=== PATIENT | female | born 1960 | race Caucasian/White ===

== ENCOUNTER → 2017-11-26 | Outpatient (CLI) | payer MEDICARE ==
[2017-11-26 15:26] LABS: C Reactive Protein <5.0 mg/L (<10.0); Creatine Kinase 102 U/L (30-135)
[2017-11-26 18:47] LABS: Vitamin D 25 Hydroxy 55.3 ng/mL (30.0-100.0)
== END ==
LOC: LABWHC1 14:02
PROVIDERS: ATTEND Psychiatry & Neurology Neurology
DX: G50.0 Trigeminal neuralgia (principal); G35 Multiple sclerosis
CPT/HCPCS: 36415; 82306; 82550; 82607; 85652; 86140

== ENCOUNTER → 2017-12-28 | Day surgery (SDC) | payer MEDICARE ==
[2017-12-23 09:23] VITALS: BMI 21.2
[~2017-12-28] MED LIST: SODIUM CHLORIDE 0.9% 500 ML 500 ML IV ONE
[2017-12-28 08:09] VITALS: RESP 20; TEMP 98.1
--- NOTE | 2017-12-28 09:02 | P.PCN ---
Date of Procedure: 12/28/17 Procedure(s) Performed: Procedure: Lumbar Puncture . Preoperative Diagnoses: Multiple sclerosis Postoperative Diagnosis: Multiple sclerosis Anesthesia: Local only Condition: stable. Complications: none. Patient presents today for lumbar puncture. She reports that her neurologist is ordered a lumbar puncture secondary to her multiple sclerosis. She has recently moved from [place] and her neurologist with like baseline values for the patient. Description of the procedure: Patient was placed in the prone position surgical table. Chlorhexidine 3 was used to the skin. X-ray was used to identify the L4-L5 interspace. A 25-gauge needle with 1% lidocaine was used to infiltrate the subcutaneous tissue and skin. A 21-GAUGE spinal needle was placed until confirmation of CSF came back. Patient has a very low opening pressure and cerebrospinal fluid was dripping out very slowly. Fluid was clear. Fluid was collected in 4 vials labeled #1 #4 , 4 collected last. After adequate him on spinal fluid was obtained hemostasis was achieved and a Band-Aid was placed.
--- NOTE | 2017-12-28 09:05 | FL ---
EXAMINATION TYPE: FL guided pain mgmt statistic DATE OF EXAM: 12/28/2017 HISTORY: DIAGNOSTIC LUMBAR PUNCTURE 4 SEC FLUORO, 1 IMAGE SCANNED
[2017-12-28 09:50] VITALS: BP 129/70; PULSE 61
[2017-12-28 11:29] LABS: T4, Free (Free Thyroxine) 1.25 ng/dL (0.78-2.19)
[2017-12-28 11:59] LABS: Glucose,CSF 51 mg/dL (40-70); Total Protein,CSF 44 mg/dL (12-60)
[2017-12-28 12:20] LABS: Appearance,CSF Clear; CSF Tube Number 4; CSF Tube Volume 2.5; Nucleated Cells, CSF 0 u/L (0-5); Red Blood Cell,CSF 13 u/L (0-10)
[2017-12-28 12:21] LABS: Red Blood Cell, CSF Crenated 100 %; Red Blood Cell, CSF Fresh 0 %
[2017-12-28 16:32] LABS: Rheumatoid Factor 7 IU/mL (0-15)
[2017-12-28 21:16] LABS: DNA Double-Stranded NEGATIVE (NEGATIVE); RNP <0.2 AI
[2017-12-29 09:03] LABS: Lyme IgG/IgM 0.4 Index
[2017-12-29 10:57] LABS: ANA Pattern Homogeneous; ANA Pattern 2 Nucleolar
[2017-12-29 11:55] LABS: VDRL, Qualitative CSF Nonreactive (Nonreactive)
[2017-12-29 12:14] LABS: APTT 41 Sec(s) (<43); DRVVT 1:1 Mix 43 Sec(s) (<44); Dilute Russell Viper Venom 45 Sec(s) (<44)
[2017-12-29 12:47] LABS: IgG - CSF 1.6 mg/dL (0.0 - 3.4); IgG/Albumin Index (CSF) 0.53 (0.00 - 0.77)
== END | disposition home or self-care (01) ==
LOC: ORPAIN 07:45
PROVIDERS: ATTEND Hospitalist
DX: G35 Multiple sclerosis (principal); Z88.2 Allergy status to sulfonamides; Z88.0 Allergy status to penicillin; Z88.8 Allergy status to other drugs, medicaments and biological substances
CPT/HCPCS: 62270; 82040; 82042; 82784; 82945; 83873; 83916; 84157; 84439; 84443; 84450; 84460; 85613; 85730; 86038; 86039; 86225; 86235; 86431; 86592; 86618; 86780; 87476; 88108; 89050

== ENCOUNTER → 2019-07-15 | Outpatient (CLI) | payer MEDICARE ==
[2019-07-15 13:00] VITALS: BP 132/78; PULSE 61; RESP 18; TEMP 97.9
--- NOTE | 2019-07-15 13:43 | P.GSHP ---
History of Present Illness H&P Date: 07/15/19 Chief Complaint: abnormal left breast mammogram Jossy is a 59-year-old white female who had a routine screening mammogram performed on 320 320. In the left breast in the upper outer quadrant there is some calcifications of concern and [place] [address]. This revealed 5 microcalcifications along the upper outer quadrant of the left breast located about 2 o'clock position 3 cm from the nipple. The patient does not feel any lumps masses or nodules in her breast. She does not feel any pain in her breast. She has not had any trauma or infection in the breast. No biopsies prior in that breast. She drinks Chi in the morning she does not smoke and is not exposed to second hand smoke she does not eat much chcolate Family History: father: colorectal cancer Hormonal History: menarche: 14 , 1 miscarrage, breast fed: yes, first born at 32 menopause: 52 BCP: 7 years hormones: none Surgical History: 1. right shoulder repair 2. tubaligation 3. brain surgery/seperate trigeminal nerve from artery (microvascular decompression) 4. Bilateral nerve stimulator was placed in the infraclavicular area for trigeminal neuralgia pain Medical History: 1. trigeminal neralgia 2. multiple sclerosis Social History: smoke: none alcohol: rare drugs: none - Constitutional Constitutional: Denies chills, Denies fever - EENT Comment: wears glasses, eyes water Ears: bilateral: decreased hearing, tinnitus Ears, nose, mouth and throat: Denies headache, Denies sore throat - Breasts Breasts: bilateral: as per HPI - Cardiovascular Cardiovascular: Denies chest pain, Denies shortness of breath - Respiratory Respiratory: Denies cough, Denies 7 - Gastrointestinal Gastrointestinal: Denies abdominal pain, Denies diarrhea, Denies nausea, Denies vomiting - Genitourinary (Female) Genitourinary: Denies dysuria, Denies hematuria - Menstruation Menstruation: Reports postmenopausal - Musculoskeletal Comment: multiple sclerosis, hands and knees arthritis - Integumentary Integumentary: Denies pruritus, Denies rash - Neurological Comment: multiple sclerosis, weak hands - Psychiatric Psychiatric: Reports depression, Denies anxiety - Endocrine Endocrine: Denies fatigue, Denies weight change - Hematologic/Lymphatic Comment: none - Allergic/Immunologic Allergic/Immunologic: Reports as per HPI Past Medical History Past Medical History: Neurologic Disorder Additional Past Medical History / Comment(s): MS; Trigeminal Neuropathy History of Any Multi-Drug Resistant Organisms: None Reported Past Surgical History: Orthopedic Surgery, Tubal Ligation Additional Past Surgical History / Comment(s): Brain surgery/ microvascular decompression; torn shoulder labrum repair Past Anesthesia/Blood Transfusion Reactions: No Reported Reaction Past Psychological History: Depression Smoking Status: Never smoker Past Alcohol Use History: Occasional Past Drug Use History: None Reported - Past Family History Father Family Medical History: Cancer Additional Family Medical History / Comment(s): colorectal CA Medications and Allergies Home Medications Medication Instructions Recorded Confirmed Type Gabapentin [Neurontin] 900 mg PO TID 12/23/17 07/15/19 History OXcarbazepine 600 mg PO HS 12/23/17 07/15/19 History OXcarbazepine [Trileptal] 300 mg PO QAM 12/23/17 07/15/19 History Pregabalin [Lyrica] 300 mg PO BID 12/23/17 07/15/19 History Allergies Allergy/AdvReac Type Severity Reaction Status Date / Time carbamazepine [From Tegretol] AdvReac Rash/Hives Verified 07/15/19 12:54 Penicillins AdvReac Rash/Hives Verified 07/15/19 12:54 Sulfa (Sulfonamide AdvReac Rash/Hives Verified 07/15/19 12:54 Antibiotics) Surgical - Exam Vital Signs Temp Pulse Resp BP Pulse Ox 97.9 F 61 18 132/78 99 07/15/19 12:56 07/15/19 12:56 07/15/19 12:56 07/15/19 12:56 07/15/19 12:56 BMI 21.3 - General well developed, well nourished, no distress - Eyes normal ocular movement - ENT no hearing loss, no congestion - Neck no masses, trachea midline - Respiratory normal respiratory effort, clear to auscultation - Cardiovascular Rhythm: regular Heart Sounds: normal: S1, S2 - Abdomen Abdomen: soft, non tender, no guarding, no rigid, no rebound - Integumentary normal turgor, slight droop left corner of the mouth - Neurologic no disoriented, no combative - Musculoskeletal normal gait, normal posture - Psychiatric oriented to time, oriented to person, oriented to place, speech is normal, memory intact breast exam: BRA 34B inspection: no nipple inversion, ptosis grade 2, bilateral infraclavicular nerve stimulators for the trigeminal neuralgia Palpation: Right breast: Multiple position on exam no dominant masses or nodules of concern, fibrocystic changes Right axilla: No adenopathy of concern Left breast: Multi-positional exam fibrocystic changes no dominant masses or nodules of concern Left axilla: No adenopathy of concern Results mammogram reviewed with radiology, will repeat mammogram at this time as the areas of concern is not well seen Assessment and Plan Assessment: Impression: 1. Mammographic abnormality left breast, reviewed with radiology not well seen 2. Fibrocystic breast changes 3. Bilateral infraclavicular nerve stimulator for trigeminal neuralgia pain 4. Multiple sclerosis Plan: 1. repeat left breast mammogram with magnification views 2. if lesion of concern is identified would proceed with stereotactic core biopsy if it is not well seen Left breast mammogram in 6 months 3. If patient notes anything of concern sooner she will let us know CC: Dr. Jerman Ford Risk and benefits of the procedure discussed with the patient. Risks include but are not limited to bleeding, infection, possible reaction to the anesthetic. Additionally the lesion may not be able to be identified and it may be necessary to do a needle local excisional biopsy. At this time we are going to repeat the area with magnification views and determine if biopsy is necessary. encounter 40 minutes, > 50% of time in planning and counselling Time with Patient: Greater than 30
--- NOTE | 2019-07-19 07:51 | MM ---
Reason for exam: clinical finding. Physical Findings: Breast exam performed by Dr. Marshall. MG Diagnostic Mammo LT w CAD CC, MLO, ML, CC with magnification, and MLO with magnification view(s) were taken of the left breast. The breast tissue is heterogeneously dense. This may lower the sensitivity of mammography. On left magnification views of the upper outer quadrant there are few rounded left calcifications scattered at anterior and middle depth with no true lateral group. 6 month follow up left mammogram recommended with magnification views for direct comparison. Left cardiac device noted. These results were verbally communicated with the patient and result sheet given to the patient on 07/15/19. ASSESSMENT: Probably benign, BI-RAD 3 RECOMMENDATION: Follow-up diagnostic mammogram of the left breast in 6 months. (magnification views)
== END | disposition home or self-care (01) ==
LOC: WWCWWP 12:44
PROVIDERS: ATTEND Surgery
DX: R92.8 Other abnormal and inconclusive findings on diagnostic imaging of breast (principal)
CPT/HCPCS: 77065

== ENCOUNTER → 2020-02-15 | Outpatient (CLI) | payer MEDICARE ==
--- NOTE | 2020-02-20 07:56 | MM ---
Reason for exam: follow-up at short interval from prior study. Last mammogram was performed 7 months ago. Physical Findings: Nurse did not find any significant physical abnormalities on exam. MG 3D Diag Mammo W/Cad LT CC and MLO view(s) were taken of the left breast. Prior study comparison: July 15, 2019, left breast MG diagnostic mammo LT w CAD. The breast tissue is extremely dense which could obscure a lesion on mammography. There is no discrete abnormality including area of concern. No significant new findings when compared with previous films. These results were verbally communicated with the patient and result sheet given to the patient on 02/15/20. ASSESSMENT: Benign, BI-RAD 2 RECOMMENDATION: Routine screening mammogram of both breasts in 3 months. Back on schedule for April 2020.
== END | disposition home or self-care (01) ==
LOC: RADMAMWWP 14:54
PROVIDERS: ATTEND Surgery
DX: R92.0 Mammographic microcalcification found on diagnostic imaging of breast (principal)
CPT/HCPCS: 77065; G0279; 77061

== ENCOUNTER → 2020-03-09 | Outpatient (CLI) | payer MEDICARE ==
[2020-03-09 16:29] VITALS: BP 122/80; PULSE 65; RESP 18
--- NOTE | 2020-03-09 16:59 | P.PN ---
Subjective Progress Note Date: 03/09/20 Principal diagnosis: follow up on abnormal mammogram Jossy is a 59-year-old white female who [place] [address]. In the left breast in the upper outer quadrant there is some calcifications of concern and [place] [address]. This revealed 5 microcalcifications along the upper outer quadrant of the left breast located about 2 o'clock position 3 cm from the nipple. follow up mammogram in 6 months was recommended. She had a repeat mammogram on 02-15-20 which was benign BIRAD 2, repeat bilateral mammogram in 3 months. The patient does not feel any lumps masses or nodules in her breast. She does not feel any pain in her breast. She has not had any trauma or infection in the breast. No biopsies prior in that breast. She drinks Chi in the morning she does not smoke and is not exposed to second hand smoke she does not eat much chcolate Family History: father: colorectal cancer Hormonal History: menarche: 14 , 1 misc[place]age, breast fed: yes, first born at 32 menopause: 52 BCP: 7 years hormones: none Surgical History: 1. right shoulder repair 2. tubaligation 3. brain surgery/seperate trigeminal nerve from artery (microvascular decompression) 4. Bilateral nerve stimulator was placed in the infraclavicular area for trigeminal neuralgia pain Medical History: 1. trigeminal neralgia 2. multiple sclerosis Social History: smoke: none alcohol: rare drugs: none - Constitutional Constitutional: Denies chills, Denies fever - EENT Comment: wears glasses, eyes water Ears: bilateral: decreased hearing, tinnitus Ears, nose, mouth and throat: Denies headache, Denies sore throat - Breasts Breasts: bilateral: as per HPI - Cardiovascular Cardiovascular: Denies chest pain, Denies shortness of breath - Respiratory Respiratory: Denies cough, - Gastrointestinal Gastrointestinal: Denies abdominal pain, Denies diarrhea, Denies nausea, Denies vomiting - Genitourinary (Female) Genitourinary: Denies dysuria, Denies hematuria - Menstruation Menstruation: Reports postmenopausal - Musculoskeletal Comment: multiple sclerosis, hands and knees arthritis - Integumentary Integumentary: Denies pruritus, Denies rash - Neurological Comment: multiple sclerosis, weak hands - Psychiatric Psychiatric: Reports depression, Denies anxiety - Endocrine Endocrine: Denies fatigue, Denies weight change - Hematologic/Lymphatic Comment: none - Allergic/Immunologic Allergic/Immunologic: Reports as per HPI Objective - Vital Signs Vital signs: Vital Signs Temp Pulse 65 03/09/20 16:27 Resp 18 03/09/20 16:27 BP 122/80 03/09/20 16:27 Pulse Ox 99 03/09/20 16:27 Intake & Output 03/08/20 03/09/20 03/09/20 18:59 06:59 18:59 Weight 63.503 kg - Constitutional General appearance: Present: average body habitus - EENT Eyes: Present: EOMI ENT: Present: hearing grossly normal - Neck Neck: Present: normal ROM - Respiratory Respiratory: bilateral: CTA - Cardiovascular Rhythm: regular Heart sounds: normal: S1, S2 - Gastrointestinal General gastrointestinal: Present: normal bowel sounds, soft - Integumentary Integumentary Comment(s): bilateral chest wall nerve stimulators in place for trigeminal neuralgia Integumentary: Present: normal turgor - Musculoskeletal Musculoskeletal: Present: gait normal - Psychiatric Psychiatric: Present: A&O x's 3 - Additional findings Additional findings: breast exam: BRA: 34B inspection: Grade 2 ptosis bilaterally Palpation: Right breast: Multiple positional exam fibrocystic breast changes Right axilla: No adenopathy of concern Left breast: Multi-positional exam no dominant masses or nodules of concern fibrocystic changes Left axilla: No adenopathy of concern Assessment and Plan Assessment: Impression: 1. Lateral fibrocystic breast changes 2. Recent left breast mammogram 1220 320 stable 3. Trigeminal neuralgia with nerve stimulators 4. Multiple sclerosis 5. Nothing to 1 interventional biopsy at this time Plan: 1. Recommendation for bilateral mammogram in 3 months/patient may opt to just have the right breast on a she just had a left breast mammogram 2. Follow-up after mammogram CC: Dr. Ford encounter 15 minutes, > 50% of time in planning and counselling
== END | disposition home or self-care (01) ==
LOC: WWCWWP 16:21
PROVIDERS: ATTEND Surgery
DX: Z53.9 Procedure and treatment not carried out, unspecified reason (principal)

== ENCOUNTER → 2020-05-24 | Outpatient (CLI) | payer MEDICARE ==
--- NOTE | 2020-05-28 10:02 | MM ---
Reason for exam: screening (asymptomatic). Last mammogram was performed 3 months ago. History: Patient is postmenopausal and had first child at age 32. Took hormonal contraceptives for 8 years. Physical Findings: A clinical breast exam by your physician is recommended on an annual basis and results should be correlated with mammographic findings. MG 3D Screening Mammo W/Cad Bilateral CC and MLO view(s) were taken. Prior study comparison: May 16, 2019, mammogram. The breast tissue is heterogeneously dense. This may lower the sensitivity of mammography. Generator device over the left pectoralis. No significant changes when compared with prior studies. ASSESSMENT: Negative, BI-RAD 1 RECOMMENDATION: Routine screening mammogram of both breasts in 1 year. Patient should continue monthly self breast exams. A negative report should not preclude additional follow up of suspicious palpable abnormalities.
== END | disposition home or self-care (01) ==
LOC: RADMAMWWP 14:52
PROVIDERS: ATTEND Surgery
DX: Z12.31 Encounter for screening mammogram for malignant neoplasm of breast (principal); Z78.0 Asymptomatic menopausal state
CPT/HCPCS: 77063; 77067

== ENCOUNTER → 2020-06-14 | Outpatient (CLI) | payer MEDICARE ==
[2020-06-14 15:39] VITALS: BP 107/66; PULSE 66; RESP 14; TEMP 97.5
--- NOTE | 2020-06-14 15:57 | P.PN ---
Subjective Progress Note Date: 06/14/20 Principal diagnosis: breast surveillance follow up on abnormal mammogram Jsosy is a 60-year-old white female who [place] [address]. In the left breast in the upper outer quadrant there is some calcifications of concern and [place] [address]. This revealed 5 microcalcifications along the upper outer quadrant of the left breast located about 2 o'clock position 3 cm from the nipple. follow up mammogram in 6 months was recommended. She had a repeat mammogram on 02-15-20 which was benign BIRAD 2, repeat bilateral mammogram in 3 months. The patient does not feel any lumps masses or nodules in her breast. She does not feel any pain in her breast. She has not had any trauma or infection in the breast. No biopsies prior in that breast. She had a bilateral mammogram on 05-24-20 which was BIRAD 1. The patient does not feel any new lumps masses or nodules in her breasts for which she has any concern. She drinks Chi in the morning she does not smoke and is not exposed to second hand smoke she does not eat much chcolate Family History: father: colorectal cancer Hormonal History: menarche: 14 , 1 misc[place], breast fed: yes, first born at 32 menopause: 52 BCP: 7 years hormones: none Surgical History: 1. right shoulder repair 2. tubaligation 3. brain surgery/seperate trigeminal nerve from artery (microvascular decompression) 4. Bilateral nerve stimulator was placed in the infraclavicular area for trigeminal neuralgia pain Medical History: 1. trigeminal neralgia 2. multiple sclerosis Social History: smoke: none alcohol: rare drugs: none - Constitutional Constitutional: Denies chills, Denies fever - EENT Comment: wears glasses, eyes water Ears: bilateral: decreased hearing, tinnitus Ears, nose, mouth and throat: Denies headache, Denies sore throat - Breasts Breasts: bilateral: as per HPI - Cardiovascular Cardiovascular: Denies chest pain, Denies shortness of breath - Respiratory Respiratory: Denies cough, - Gastrointestinal Gastrointestinal: Denies abdominal pain, Denies diarrhea, Denies nausea, Denies vomiting - Genitourinary (Female) Genitourinary: Denies dysuria, Denies hematuria - Menstruation Menstruation: Reports postmenopausal - Musculoskeletal Comment: multiple sclerosis, hands and knees arthritis - Integumentary Integumentary: Denies pruritus, Denies rash - Neurological Comment: multiple sclerosis, weak hands - Psychiatric Psychiatric: Reports depression, Denies anxiety - Endocrine Endocrine: Denies fatigue, Denies weight change - Hematologic/Lymphatic Comment: none - Allergic/Immunologic Allergic/Immunologic: Reports as per HPI Objective - Vital Signs Vital signs: Vital Signs Temp 97.5 F L 06/14/20 15:34 Pulse 66 06/14/20 15:34 Resp 14 06/14/20 15:34 BP 107/66 06/14/20 15:34 Pulse Ox 98 06/14/20 15:34 Intake & Output 06/13/20 06/14/20 06/14/20 18:59 06:59 18:59 Weight 64.41 kg - Exam BMI 26.1 - Constitutional General appearance: Present: average body habitus - EENT Eyes: Present: EOMI ENT: Present: hearing grossly normal - Neck Neck: Present: normal ROM - Respiratory Respiratory: bilateral: CTA - Cardiovascular Rhythm: regular Heart sounds: normal: S1, S2 - Integumentary Integumentary: Present: normal turgor - Musculoskeletal Musculoskeletal: Present: gait normal - Psychiatric Psychiatric: Present: A&O x's 3, appropriate affect, intact judgment & insight - Additional findings Additional findings: Breasts examination: BRA: 30 4B Inspection: Bilateral grade 2 ptosis Palpation: Right breast: Multi-positional exam fibrocystic changes no dominant masses or nodules of concern Right axilla: No adenopathy of concern Left breast: Multi-positional exam fibrocystic changes no dominant masses or nodules of concern Left axilla: No adenopathy of concern Bilateral nerve stimulator is in the upper chest wall Assessment and Plan Assessment: Impression: 1. bilateral fibrocystic disease 2. Trigeminal neuralgia 2. Multiple sclerosis Plan: 1. follow up bilateral mammogram in 1 year with examination CC: Dr. Ford
== END | disposition home or self-care (01) ==
LOC: WWCWWP 15:20
PROVIDERS: ATTEND Surgery
DX: N60.11 Diffuse cystic mastopathy of right breast (principal); N60.12 Diffuse cystic mastopathy of left breast; G35 Multiple sclerosis; G50.0 Trigeminal neuralgia

== ENCOUNTER → 2021-06-07 | Outpatient (CLI) | payer MEDICARE ==
[2021-06-07 14:17] VITALS: BP 133/57; PULSE 70; RESP 18; TEMP 98.1
--- NOTE | 2021-06-07 14:44 | P.PN ---
Subjective Progress Note Date: 06/07/21 Principal diagnosis: fibrocystic breast changes Jossy is a 61-year-old white female who [place] [address]. In the left breast in the upper outer quadrant there is some calcifications of concern and a [place] [address]. This revealed 5 microcalcifications along the upper outer quadrant of the left breast located about 2 o'clock position 3 cm from the nipple. follow up mammogram in 6 months was recommended. She had a repeat mammogram on 02-15-20 which was benign BIRAD 2, repeat bilateral mammogram in 3 months. She had a bilateral mammogram on 05-30-21 which is benign BIRAD 2. The patient does not feel any lumps masses or nodules in her breast. She does not feel any pain in her breast. She has not had any trauma or infection in the breast. No biopsies prior in that breast. She drinks Chi in the morning she does not smoke and is not exposed to second hand smoke she does not eat much chcolate Family History: father: colorectal cancer Hormonal History: menarche: 14 , 1 [place], breast fed: yes, first born at 32 menopause: 52 BCP: 7 years hormones: none Surgical History: 1. right shoulder repair 2. tubaligation 3. brain surgery/seperate trigeminal nerve from artery (microvascular decompression) 4. Bilateral nerve stimulator was placed in the infraclavicular area for trigeminal neuralgia pain Medical History: 1. trigeminal neralgia 2. multiple sclerosis Social History: smoke: none alcohol: rare drugs: none - Constitutional Constitutional: Denies chills, Denies fever - EENT Comment: wears glasses, eyes water Ears: bilateral: decreased hearing, tinnitus Ears, nose, mouth and throat: Denies headache, Denies sore throat - Breasts Breasts: bilateral: as per HPI - Cardiovascular Cardiovascular: Denies chest pain, Denies shortness of breath - Respiratory Respiratory: Denies cough, - Gastrointestinal Gastrointestinal: Denies abdominal pain, Denies diarrhea, Denies nausea, Denies vomiting - Genitourinary (Female) Genitourinary: Denies dysuria, Denies hematuria - Menstruation Menstruation: Reports postmenopausal - Musculoskeletal Comment: multiple sclerosis, hands and knees arthritis - Integumentary Integumentary: Denies pruritus, Denies rash - Neurological Comment: multiple sclerosis, weak hands - Psychiatric Psychiatric: Reports depression, Denies anxiety - Endocrine Endocrine: Denies fatigue, Denies weight change - Hematologic/Lymphatic Comment: none - Allergic/Immunologic Allergic/Immunologic: Reports as per HPI Objective - Vital Signs Vital signs: Vital Signs Temp 98.1 F 06/07/21 14:15 Pulse 70 06/07/21 14:15 Resp 18 06/07/21 14:15 BP 133/57 06/07/21 14:15 Pulse Ox 99 06/07/21 14:15 Intake & Output 06/06/21 06/07/21 06/07/21 18:59 06:59 18:59 Weight 63.503 kg - Exam BMI 21.3 - Constitutional General appearance: Present: cooperative - EENT Eyes: Present: EOMI ENT: Present: hearing grossly normal - Neck Neck: Present: normal ROM - Respiratory Respiratory: bilateral: CTA - Cardiovascular Heart sounds: normal: S1, S2 - Integumentary Integumentary: Present: normal turgor - Musculoskeletal Musculoskeletal: Present: gait normal - Psychiatric Psychiatric: Present: A&O x's 3, appropriate affect, intact judgment & insight - Additional findings Additional findings: Breast Exam: BRA: 34B inspection: grade 2 ptosis bilateral, bilateral infraclavicular nerve stimulators to control trigeminal neuralgia pain palpation: right breast: multipositional exam no dominate masses or nodules of concern right axilla: no adenopathy of concern left breast: multipositional exam no dominate masses or nodules of concern left axilla: no adenopathy of concern Assessment and Plan Assessment: Impression: 1. trigeminal neralgia 2. multiple sclerosis 3. fibrocystic breast changes Plan: 1. bilateral mammogram in 1 year, and follow up appointment at that time CC: Dr. Ford
== END ==
LOC: WWCWWP 14:08
PROVIDERS: ATTEND Surgery
DX: N60.19 Diffuse cystic mastopathy of unspecified breast (principal); G35 Multiple sclerosis; G50.0 Trigeminal neuralgia; Z88.0 Allergy status to penicillin; Z88.2 Allergy status to sulfonamides; Z88.1 Allergy status to other antibiotic agents

== ENCOUNTER → 2021-11-05 | Outpatient (CLI) | payer MEDICARE ==
[2021-11-05 14:39] VITALS: BP 134/78; PULSE 64; RESP 18; TEMP 97.9
--- NOTE | 2021-11-05 15:34 | P.HPOB ---
History of Present Illness H&P Date: 11/05/21 Chief Complaint: The patient is here for her routine gynecologic exam. This is a 69-year-old 012 with an LMP of 2011. The patient is here to establish with this office. She is without gynecologic complaints and denies any postmenopausal bleeding. Review of Systems The patient has gained 15 pounds over the last year. She states she has been generally under weight since she was diagnosed with trigeminal neuralgia. She denies respiratory, cardiac, or G.I. problems. Past Medical History Past Medical History: Neurologic Disorder Additional Past Medical History / Comment(s): Multiple sclerosis; Trigeminal Neuropathy. 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 History of Any Multi-Drug Resistant Organisms: None Reported Past Surgical History: Orthopedic Surgery, Tubal Ligation Additional Past Surgical History / Comment(s): Brain surgery/ microvascular decompression; right torn shoulder labrum repair; Colonoscopy 2017 ([place]) Past Anesthesia/Blood Transfusion Reactions: No Reported Reaction Past Psychological History: Depression (Doing well without medications. Denies current depression.) Smoking Status: Never smoker Past Alcohol Use History: Occasional (1 or 2 per week) Past Drug Use History: None Reported Additional History: She has been since 1984. She does not work outside of the home. She has 1 grandchild. - Past Family History Father Family Medical History: Cancer, Coronary Artery Disease (CAD) Additional Family Medical History / Comment(s): colorectal CA Mother Family Medical History: Hypertension, Rheumatoid Arthritis (RA) Additional Family Medical History / Comment(s): Osteoporosis. Medications and Allergies Home Medications Medication Instructions Recorded Confirmed Type Gabapentin [Neurontin] 900 mg PO TID 12/23/17 11/05/21 History OXcarbazepine 600 mg PO HS 12/23/17 11/05/21 History OXcarbazepine [Trileptal] 300 mg PO QAM 12/23/17 11/05/21 History Pregabalin [Lyrica] 300 mg PO BID 12/23/17 11/05/21 History Cholecalciferol (Vitamin D3) 125 mcg PO QAM 06/14/20 11/05/21 History [Vitamin D3 (5000 Iu)] Cyanocobalamin (Vitamin B-12) 1,000 mcg PO QAM 06/14/20 11/05/21 History [Vitamin B-12] Multivitamins, Thera [Multivitamin 1 tab PO QAM 06/14/20 11/05/21 History (formulary)] Vitamin A [Vitamin A (8,000 Units 2,400 mcg PO QAM 06/14/20 11/05/21 History = 2,400 MCG)] Vits A,C,E/Lutein/Minerals 1 each PO QAM 06/14/20 11/05/21 History [Ocuvite with Lutein Tablet] Calcium Carbonate [Calcium] 600 mg PO DAILY 11/05/21 11/05/21 History Zinc Gluconate [Zinc] 50 mg PO DAILY 11/05/21 11/05/21 History Allergies Allergy/AdvReac Type Severity Reaction Status Date / Time carbamazepine [From Tegretol] AdvReac Rash/Hives Verified 11/05/21 14:35 Penicillins AdvReac Rash/Hives Verified 11/05/21 14:35 Sulfa (Sulfonamide AdvReac Rash/Hives Verified 11/05/21 14:35 Antibiotics) Exam Vital Signs Temp Pulse Resp BP Pulse Ox 11/05/21 14:36 97.9 F 64 18 134/78 99 Intake and Output 11/05/21 11/05/21 11/05/21 06:59 14:59 22:59 Other: Weight 65.771 kg Height 5 feet 8 inches, weight 145 pounds, BMI 22.0. This is a well-developed well-nourished white female who is alert and oriented times 3 in no acute distress. HEENT: Within normal limits. NECK: Supple without mass or thyromegaly. CHEST AND LUNGS: Clear to auscultation. HEART: Regular rate and rhythm. BREASTS: Are without mass or discharge. AXILLARY EXAM: Negative for adenopathy. BACK: Negative for CVA tenderness. ABDOMEN: Soft, nontender, without palpable masses. PELVIC EXAM: Normal external genitalia with mild atrophy. Cervix and vagina appear normal with mild atrophy. There is no unusual discharge. There is no evidence of prolapse. The uterus is midposition, nongravid size and nontender. There are no palpable adnexal masses or tenderness. RECTAL EXAM: Rectovaginal exam is negative for mass or tenderness and is negative for occult blood. EXTREMITIES: Nontender. IMPRESSION: 1. 61-year-old menopausal female with normal gynecologic exam PLAN: 1. Pap smear cotest was performed. 2. Self breast awareness was discussed with the patient. We have also discussed symptoms associated with inflammatory breast cancer. 3. Screening mammogram was done on 05/30/2021 and was benign. She will repeat this after 1 year. 4. Osteoporosis prevention was discussed. I have stressed the importance of adequate calcium, vitamin D and regular exercise. Recommended amounts of calcium and vitamin D were also discussed. I have recommended bone density testing and the order slip was given to the patient for this. 5. Colorectal cancer screening was discussed. With her father's history of colon cancer, she is probably due for a colonoscopy and she will arrange this through her PCP. 6. She has completed her Covid vaccination series, but has not gotten a booster. I recommended that she look into getting a booster. 7. She was advised to return in one year for her annual well woman exam.
== END ==
LOC: WWCWWP 14:28
PROVIDERS: ATTEND Obstetrics & Gynecology
DX: Z01.419 Encounter for gynecological examination (general) (routine) without abnormal findings (principal); Z78.0 Asymptomatic menopausal state; Z88.0 Allergy status to penicillin; Z88.2 Allergy status to sulfonamides; Z88.8 Allergy status to other drugs, medicaments and biological substances

== ENCOUNTER → 2021-11-28 | Outpatient (CLI) | payer MEDICARE ==
--- NOTE | 2021-11-29 16:32 | BD ---
EXAMINATION TYPE: Axial Bone Density DATE OF EXAM: 11/28/2021 COMPARISON: NONE CLINICAL HISTORY: 61 years year old Female. ICD-10 CODE: Z78.0 POSTMENOPAUSAL SYMPTOMS Height: 5 FT 7 IN Weight: 142 FRAX RISK QUESTIONS: Alcohol (3 or more units per day): NO Family History (Parent hip fracture): YES Glucocorticoids (More than 3mos): NO (Ex: prednisone, prednisolone, methylprednisolone, dexamethasone, and hydrocortisone). History of Fracture in Adulthood: YES Secondary Osteoporosis: 1. Type 1 Diabetes: NO 2. Hyperthyroidism: NO 3. Menopause before 45: NO 4. Malnutrition: NO 5. Chronic liver disease: NO Rheumatoid Arthritis: NO Current Tobacco Use: NO RISK FACTORS HISTORY OF: Surgery to Spine/Hip(right/left)/Wrist (right/left): NO Family History of Osteoporosis: YES Active: YES Diet low in dairy products/other sources of calcium: NO Postmenopausal woman: YES Take estrogen and/or progesterone medications: NO Lost more than 2 inches in height since high school: NO Frequent falls: YES Poor Health: GOOD Hyperparathyroidism: NO Adrenal Insufficiency: NO MEDICATIONS: Additional Medications: GABAPENTIN, OXCARBAZEPINE, LYRICA, Additional History: PT HAS MS EXAM MEASUREMENTS: Bone mineral densitometry was performed using the Graph [employer] System. Bone mineral density as measured about the Lumbar spine is: ----- L1-L4(G/cm2): 0.975 T Score Values are as follows: ----- L1: -2.5 ----- L2: -2.1 ----- L3: -1.3 ----- L4: -1.3 ----- L1-L4: -1.7 BASELINE Bone mineral density about the R hip (g/cm2): 0.810 Bone mineral density about the L hip (g/cm2): 0.816 T Score values are as follows: -----R Neck: -1.6 -----L Neck: -1.6 -----R Total: -1.9 -----L Total: -1.4 BASELINE FRAX%s: The graph provided illustrates a 13.7 % chance for a major osteoporotic fx and a 1.5 % chance for the hips probability for fx in 10 years time. IMPRESSION: Osteopenia (T Score between -2.5 and -1). There is slightly increased risk of fracture and the patient may be considered for treatment. Re-Screen 2-5 years. NOTE: T-SCORE=SD OF THE YOUNG ADULT MEAN.
== END | disposition home or self-care (01) ==
LOC: RADBDWWP 16:06
PROVIDERS: ATTEND Obstetrics & Gynecology
DX: M81.0 Age-related osteoporosis without current pathological fracture (principal); Z78.0 Asymptomatic menopausal state
CPT/HCPCS: 77080

== ENCOUNTER → 2022-06-05 | Outpatient (CLI) | payer MEDICARE ==
--- NOTE | 2022-06-06 08:17 | MM ---
Reason for Exam: Screening (asymptomatic). Last screening mammogram was performed 12 month(s) ago. Patient History: Menarche at age 14. First Full-Term at age 32. Late child-bearing (after 30). Postmenopausal. Patient has history of breast feeding. Patient used Hormonal Contraceptives for 8 years. Risk Values: Taylor 5 year model risk: 2.0%. NCI Lifetime model risk: 9.7%. Prior Study Comparison: 02/15/2020 Left Diagnostic Mammogram, [facility]. 05/24/2020 Bilateral Screening Mammogram, [facility]. 05/30/2021 Bilateral Screening Mammogram, [facility]. Tissue Density: The breast tissue is heterogeneously dense. This may lower the sensitivity of mammography. Findings: Analyzed By CAD. Benign-appearing calcifications. There is no suspicious group of microcalcifications or new suspicious mass in either breast. Overall Assessment: Benign, BI-RAD 2 Management: Screening Mammogram of both breasts in 1 year. A clinical breast exam by your physician is recommended on an annual basis and results should be correlated with mammographic findings. [facility] will attempt to contact patient to return for supplemental views and ultrasound if indicated. Electronically signed and approved by: David Booth DO
== END | disposition home or self-care (01) ==
LOC: RADMAMWWP 15:10
PROVIDERS: ATTEND Surgery
DX: Z12.31 Encounter for screening mammogram for malignant neoplasm of breast (principal); Z78.0 Asymptomatic menopausal state
CPT/HCPCS: 77063; 77067

== ENCOUNTER → 2022-06-12 | Outpatient (CLI) | payer MEDICARE ==
[2022-06-12 14:38] VITALS: BP 140/79; PULSE 66; RESP 17; TEMP 98.1
--- NOTE | 2022-06-12 14:45 | P.PN ---
Subjective Progress Note Date: 06/12/22 Principal diagnosis: fibrocystic breast changes fibrocystic breast changes Jossy is a 62-year-old white female who [place] [address]. In the left breast in the upper outer quadrant there is some calcifications of concern and [place] [address]. This revealed 5 microcalcifications along the upper outer quadrant of the left breast located about 2 o'clock position 3 cm from the nipple. follow up mammogram in 6 months was recommended. She had a repeat mammogram on 02-15-20 which was benign BIRAD 2, repeat bilateral mammogram in 3 months The patient does not feel any lumps masses or nodules in her breast. She does not feel any pain in her breast. She has not had any trauma or infection in the breast. No biopsies prior in that breast. She underwent a bilateral mammogram on 06-05-22 which was BIRAD 2. She drinks Chi in the morning she does not smoke and is not exposed to second hand smoke she does not eat much chcolate Family History: father: colorectal cancer Hormonal History: menarche: 14 , 1 miscarrage, breast fed: yes, first born at 32 menopause: 52 BCP: 7 years hormones: none Surgical History: 1. right shoulder repair 2. tubaligation 3. brain surgery/seperate trigeminal nerve from artery (microvascular decompression) 4. Bilateral nerve stimulator was placed in the infraclavicular area for trigeminal neuralgia pain Medical History: 1. trigeminal neralgia 2. multiple sclerosis Social History: smoke: none alcohol: rare drugs: none - Constitutional Constitutional: Denies chills, Denies fever - EENT Comment: wears glasses, eyes water Ears: bilateral: decreased hearing, tinnitus Ears, nose, mouth and throat: Denies headache, Denies sore throat - Breasts Breasts: bilateral: as per HPI - Cardiovascular Cardiovascular: Denies chest pain, Denies shortness of breath - Respiratory Respiratory: Denies cough, - Gastrointestinal Gastrointestinal: Denies abdominal pain, Denies diarrhea, Denies nausea, Denies vomiting - Genitourinary (Female) Genitourinary: Denies dysuria, Denies hematuria - Menstruation Menstruation: Reports postmenopausal - Musculoskeletal Comment: multiple sclerosis, hands and knees arthritis - Integumentary Integumentary: Denies pruritus, Denies rash - Neurological Comment: multiple sclerosis, weak hands - Psychiatric Psychiatric: Reports depression, Denies anxiety - Endocrine Endocrine: Denies fatigue, Denies weight change - Hematologic/Lymphatic Comment: none - Allergic/Immunologic Allergic/Immunologic: Reports as per HPI Objective - Vital Signs Vital signs: Vital Signs Temp 98.1 F 06/12/22 14:36 Pulse 66 06/12/22 14:36 Resp 17 06/12/22 14:36 BP 140/79 06/12/22 14:36 Pulse Ox 98 06/12/22 14:36 FiO2 Intake & Output 06/11/22 06/12/22 06/12/22 18:59 06:59 18:59 Weight 61.235 kg - Constitutional General appearance: Present: cooperative - EENT Eyes: Present: EOMI ENT: Present: hearing grossly normal - Neck Neck: Present: normal ROM - Respiratory Respiratory: bilateral: CTA - Cardiovascular Rhythm: regular Heart sounds: normal: S1, S2 - Gastrointestinal General gastrointestinal: Present: soft - Integumentary Integumentary: Present: normal turgor - Musculoskeletal Musculoskeletal: Present: gait normal - Psychiatric Psychiatric: Present: A&O x's 3, appropriate affect, intact judgment & insight - Additional findings Additional findings: Breast Exam: BRA: 34B inspection: grade 2 ptosis bilateral, bilateral infraclavicular nerve stimulators to control trigeminal neuralgia pain palpation: right breast: multipositional exam no dominate masses or nodules of concern right axilla: no adenopathy of concern left breast: multipositional exam no dominate masses or nodules of concern left axilla: no adenopathy of concern Assessment and Plan Assessment: Impression: 1. trigeminal neralgia 2. multiple sclerosis 3. fibrocystic breast changes Plan: 1. bilateral mammogram in 1 year, and follow up appointment at that time CC: Dr. Ford
== END ==
LOC: WWCWWP 14:23
PROVIDERS: ATTEND Surgery
DX: N60.12 Diffuse cystic mastopathy of left breast (principal); G35 Multiple sclerosis; Z80.0 Family history of malignant neoplasm of digestive organs; G50.0 Trigeminal neuralgia; Z88.0 Allergy status to penicillin; Z88.2 Allergy status to sulfonamides; Z88.8 Allergy status to other drugs, medicaments and biological substances

== ENCOUNTER → 2023-06-08 | Outpatient (CLI) | payer MEDICARE ==
--- NOTE | 2023-06-08 23:46 | MM ---
Reason for Exam: Screening (asymptomatic). Last screening mammogram was performed 12 month(s) ago. Patient History: Menarche at age 14. First Full-Term at age 32. Late child-bearing (after 30). Postmenopausal. Patient has history of breast feeding. Patient used Hormonal Contraceptives for 8 years. Risk Values: Taylor 5 year model risk: 2.1%. NCI Lifetime model risk: 9.4%. Prior Study Comparison: 05/24/2020 Bilateral Screening Mammogram, [facility]. 05/30/2021 Bilateral Screening Mammogram, [facility]. 06/05/2022 Bilateral MG 3D screening mammo w/cad, [facility]. Tissue Density: The breasts are extremely dense, which lowers the sensitivity of mammography. Findings: Analyzed By CAD. The pattern is symmetrical. No significant interval change is evident. Benign calcifications within the bilateral breasts. No suspicious groups of microcalcifications, spiculated or lobular masses, architectural distortion or other secondary signs of malignancy are mammographically apparent. Overall Assessment: Benign, BI-RAD 2 Management: Screening Mammogram of both breasts in 1 year. A negative mammogram report should not preclude additional follow up of suspicious palpable abnormalities. Patient should continue monthly self breast exam. A clinical breast exam by your physician is recommended on an annual basis and results should be correlated with mammographic findings. Electronically signed and approved by: Best Graham D.O. Radiologis
== END | disposition home or self-care (01) ==
LOC: RADMAMWWP 10:50
PROVIDERS: ATTEND Surgery
DX: Z12.31 Encounter for screening mammogram for malignant neoplasm of breast (principal); Z78.0 Asymptomatic menopausal state
CPT/HCPCS: 77063; 77067

== ENCOUNTER → 2023-06-25 | Outpatient (CLI) | payer MEDICARE ==
--- NOTE | 2023-06-25 12:10 | P.PN ---
Subjective Progress Note Date: 06/25/23 Principal diagnosis: fibrocystic breast changes 06-25-23 Principal diagnosis: fibrocystic breast changes Jossy is a 63-year-old white female who [place] [address]. In the left breast in the upper outer quadrant there is some calcifications of concern and [place] [address]. This revealed 5 microcalcifications along the upper outer quadrant of the left breast located about 2 o'clock position 3 cm from the nipple. follow up mammogram in 6 months was recommended. She had a repeat mammogram on 02-15-20 which was benign BIRAD 2, repeat bilateral mammogram in 3 months The patient does not feel any lumps masses or nodules in her breast. She does not feel any pain in her breast. She has not had any trauma or infection in the breast. No biopsies prior in that breast. She underwent a bilateral mammogram on 06-07 which was BIRAD 2. She is not complaining of any new lumps masses or nodules of concern in either breast. She drinks Chi in the morning she does not smoke and is not exposed to second hand smoke she does not eat much chocolate Family History: father: colorectal cancer Hormonal History: menarche: 14 , 1 miscarrage, breast fed: yes, first born at 32 menopause: 52 BCP: 7 years hormones: none Surgical History: 1. right shoulder repair 2. tubaligation 3. brain surgery/seperate trigeminal nerve from artery (microvascular decompression) 4. Bilateral nerve stimulator was placed in the infraclavicular area for trigeminal neuralgia pain Medical History: 1. trigeminal neralgia 2. multiple sclerosis 3. high cholesterol Social History: smoke: none alcohol: rare drugs: none - Constitutional Constitutional: Denies chills, Denies fever - EENT Comment: wears glasses, eyes water Ears: bilateral: decreased hearing, tinnitus Ears, nose, mouth and throat: Denies headache, Denies sore throat - Breasts Breasts: bilateral: as per HPI - Cardiovascular Cardiovascular: Denies chest pain, Denies shortness of breath - Respiratory Respiratory: Denies cough, - Gastrointestinal Gastrointestinal: Denies abdominal pain, Denies diarrhea, Denies nausea, Denies vomiting - Genitourinary (Female) Genitourinary: Denies dysuria, Denies hematuria - Menstruation Menstruation: Reports postmenopausal - Musculoskeletal Comment: multiple sclerosis, hands and knees arthritis - Integumentary Integumentary: Denies pruritus, Denies rash - Neurological Comment: multiple sclerosis, weak hands - Psychiatric Psychiatric: Reports depression, Denies anxiety - Endocrine Endocrine: Denies fatigue, Denies weight change - Hematologic/Lymphatic Comment: none - Allergic/Immunologic Allergic/Immunologic: Reports as per HPI Objective - Constitutional General appearance: Present: cooperative - EENT Eyes: Present: EOMI ENT: Present: hearing grossly normal - Neck Neck: Present: normal ROM - Respiratory Respiratory: bilateral: CTA - Cardiovascular Rhythm: regular Heart sounds: normal: S1, S2 - Gastrointestinal General gastrointestinal: Present: soft - Integumentary Integumentary: Present: normal turgor - Musculoskeletal Musculoskeletal: Present: gait normal - Psychiatric Psychiatric: Present: A&O x's 3, appropriate affect, intact judgment & insight - Additional findings Additional findings: Breast Exam: BRA: 34B inspection: grade 2 ptosis bilateral, bilateral infraclavicular nerve stimulators to control trigeminal neuralgia pain palpation: right breast: multipositional exam no dominate masses or nodules of concern right axilla: no adenopathy of concern left breast: multipositional exam no dominate masses or nodules of concern left axilla: no adenopathy of concern Assessment and Plan Assessment: Impression: 1. trigeminal neralgia 2. multiple sclerosis 3. fibrocystic breast changes Plan: 1. bilateral mammogram in 1 year, and follow up appointment at that time CC: Dr. Ford
[2023-06-25 12:25] VITALS: BP 134/85; PULSE 73; RESP 17; TEMP 97.8
== END ==
LOC: WWCWWP 11:44
PROVIDERS: ATTEND Surgery
DX: R92.1 Mammographic calcification found on diagnostic imaging of breast (principal); G50.0 Trigeminal neuralgia; G35 Multiple sclerosis; N60.19 Diffuse cystic mastopathy of unspecified breast; Z88.0 Allergy status to penicillin; Z88.2 Allergy status to sulfonamides; Z88.8 Allergy status to other drugs, medicaments and biological substances

== ENCOUNTER 2023-12-12 10:47 | Emergency (ER) | payer MEDICARE ==
--- NOTE | 2023-12-12 11:09 | ED ---
General Adult HPI - General Chief complaint: Arrhythmia/Palpitations Stated complaint: Heart Palp. Time Seen by Provider: 12/12/23 10:57 Source: patient Mode of arrival: wheelchair Limitations: no limitations - History of Present Illness Initial comments: Dictation was produced using [employer] dictation software. please excuse any grammatical, word or spelling errors. Chief Complaint: 63-year-old female with history of multiple sclerosis trigeminal neuralgia presents to the emergency department for tachycardia palpitations History of Present Illness: Patient 63-year-old female she woke up this morning felt like her heart was racing. She noticed that her heart was racing into the 160s. Patient states for the last couple days she has been feeling dizzy and fatigued. Patient denies any cardiac history. Patient states that she has had episodes like this in the past. She has seen cardiology for this. States that symptoms will occur every 5 to 6 months. States that it only last for an hour and resolves on its own. Patient was never diagnosed with SVT or A-fib. The ROS documented in this emergency department record has been reviewed and confirmed by me. Those systems with pertinent positive or negative responses have been documented in the HPI. All other systems are other negative and/or noncontributory. - Related Data Home Medications Medication Instructions Recorded Confirmed Gabapentin [Neurontin] 900 mg PO TID 12/23/17 06/25/23 OXcarbazepine 600 mg PO HS 12/23/17 06/25/23 OXcarbazepine [Trileptal] 300 mg PO QAM 12/23/17 06/25/23 Pregabalin [Lyrica] 300 mg PO BID 12/23/17 06/25/23 Cholecalciferol (Vitamin D3) 125 mcg PO QAM 06/14/20 06/25/23 [Vitamin D3 (5000 Iu)] Cyanocobalamin (Vitamin B-12) 1,000 mcg PO QAM 06/14/20 06/25/23 [Vitamin B-12] Multivitamins, Thera [Multivitamin 1 tab PO QAM 06/14/20 06/25/23 (formulary)] Vits A,C,E/Lutein/Minerals 1 each PO QAM 06/14/20 06/25/23 [Ocuvite with Lutein Tablet] Calcium Carbonate [Calcium] 600 mg PO DAILY 11/05/21 06/25/23 Zinc Gluconate [Zinc] 50 mg PO DAILY 11/05/21 06/25/23 Ascorbic Acid [Vitamin C] 500 mg PO DAILY 06/12/22 06/25/23 Magnesium 200 mg PO DAILY 06/12/22 06/25/23 Previous Rx's Medication Instructions Recorded Metoprolol Tartrate 12.5 mg PO BID #28 tab 12/12/23 Allergies Allergy/AdvReac Type Severity Reaction Status Date / Time carbamazepine [From Tegretol] AdvReac Rash/Hives Verified 12/12/23 10:48 Penicillins AdvReac Rash/Hives Verified 12/12/23 10:48 Sulfa (Sulfonamide AdvReac Rash/Hives Verified 12/12/23 10:48 Antibiotics) Review of Systems ROS Statement: Those systems with pertinent positive or pertinent negative responses have been documented in the HPI. ROS Other: All systems not noted in ROS Statement are negative. Past Medical History Past Medical History: Cancer, Neurologic Disorder Additional Past Medical History / Comment(s): Multiple sclerosis; Trigeminal Neuralgia. Basal cell skin cancer and near the left eye. 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 History of Any Multi-Drug Resistant Organisms: None Reported Past Surgical History: Orthopedic Surgery, Tubal Ligation Additional Past Surgical History / Comment(s): Brain surgery/ microvascular decompression; right torn shoulder labrum repair; Colonoscopy 2021(next after 5yr) Past Anesthesia/Blood Transfusion Reactions: No Reported Reaction Past Psychological History: Depression Smoking Status: Never smoker Past Alcohol Use History: Occasional Past Drug Use History: None Reported - Past Family History Father Family Medical History: Cancer, Coronary Artery Disease (CAD) Additional Family Medical History / Comment(s): colorectal CA Mother Family Medical History: Hypertension, Rheumatoid Arthritis (RA) Additional Family Medical History / Comment(s): Osteoporosis. General Exam - General Exam Comments Initial Comments: PHYSICAL EXAM: General Impression: Alert and oriented x3, not in acute distress HEENT: Normocephalic atraumatic, extra-ocular movements intact, pupils equal and reactive to light bilaterally, mucous membranes moist. 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 Laboratory evaluation is unremarkable. EKG Findings - EKG Comments: EKG Findings:: My EKG interpretation: Ventricular rate 168, SVT versus A-fib with RVR with aberrancy. No old EKG for comparison. Procedures - Procedures Initial comment: Chemical cardioversion: Patient was monitored with crash cart. Pads applied. IV access was confirmed. Patient given 6 mg of IV adenosine through right antecubital IV. After couple seconds patient converted to normal sinus rhythm. Patient tolerated procedures well. No complications Medical Decision Making - Medical Decision Making Was pt. sent in by a medical professional or institution (, PA, SHAPER SET UP OPERATOR, urgent care, hospital, or halfway...) When possible be specific @ -No Did you speak to anyone other than the patient for history (EMS, parent, family, police, friend...)? What history was obtained from this source @ -No Did you review nursing and triage notes (agree or disagree)? Why? @ -I reviewed and agree with nursing and triage notes Were old charts reviewed (outside hosp., previous admission, EMS record, old EKG, old radiological studies, urgent care reports/EKG's, halfway records)? Report findings @ -No old charts were reviewed Differential Diagnosis (chest pain, altered mental status, abdominal pain women, abdominal pain men, vaginal bleeding, musculoskeletal, weakness, fever, dyspnea, syncope, headache, dizziness, GI bleed, back pain, seizure, CVA, palpatations, mental health)? @ - Differential Palpitations: Ventricular arrhythmias, atrial arrhythmias, myocardial infarction, anemia, thyrotoxicosis, electrolyte imbalance, hypokalemia, pulmonary embolism, pulmonary disease, drugs, alcohol, anxiety, stress.... This is not meant to be an all-inclusive list. EKG interpreted by me (3pts min.). @ -See above X-rays interpreted by me (1pt min.). @ -Chest x-ray shows no acute processes CT interpreted by me (1pt min.). @ -None done U/S interpreted by me (1pt. min.). @ -None done What testing was considered but not performed or refused? (CT, X-rays, U/S, labs)? Why? @ -None What meds were considered but not given or refused? Why? @ -None Was smoking cessation discussed for >3mins.? @ -No Were there social determinants of health that impacted care today? How? (Homelessness, low income, unemployed, alcoholism, drug addiction, transport ation, low edu. Level, literacy, decrease access to med. care, care home, rehab)? @ -No Was there de-escalation of care discussed even if they declined (Discuss DNR or withdrawal of care, Hospice)? DNR status @ -No What co-morbidities impacted this encounter? (DM, HTN, Smoking, COPD, CAD, Cancer, CVA, ARF, Chemo, Hep., AIDS, mental health diagnosis, sleep apnea, morbid obesity)? @ -None Was patient admitted / discharged? Hospital course, mention meds given and route, prescriptions, significant lab abnormalities, going to OR and other pertinent info. @ -63-year-old female presents to the emergency department palpitations. Initial EKG was concerning for A-fib with RVR versus SVT. Patient is no history of either. She does report having had some symptoms similar to this that self resolved. Patient tolerated chemical cardioversion well. There were no underlying fibrillatory P waves seen during adenosine chemical cardioversion. Patient converted. Laboratory evaluation is unremarkable. Repeat evaluation shows well-appearing female in no acute distress she states she feels at baseline. Patient discharged vies follow-up with cardiology. Did you discuss the management of the patient with other professionals (professionals i.e. , PA, SHAPER SET UP OPERATOR, lab, RT, psych nurse, clinical social worker, fire control assistant, teacher, corporate compliance officer, briefcase sewer)? Give summary @ -No Was critical care preformed (if so, how long)? @ -Yes, 33 minutes for management of tachydysrhythmia Undiagnosed new problem with uncertain prognosis? @ -No Drug Therapy requiring intensive monitoring for toxicity (Heparin, Nitro, [place], Cardizem)? @ -No Were any procedures done? @ -No Diagnosis/symptom? Acute, or Chronic, or Acute on Chronic? Uncomplicated (without systemic symptoms) or Complicated (systemic symptoms)? @ -SVT Side effects of treatment? @ -No Exacerbation, Progression, or Severe Exacerbation? @ -No Poses a threat to life or bodily function? How? (Chest pain, USA, LA, pneumonia, PE, COPD, DKA, ARF, appy, cholecystitis, CVA, Diverticulitis, Homicidal, Suicidal, threat to staff... and all critical care pts) @ -yes - Lab Data Result diagrams: 12/12/23 11:06 12/12/23 11:06 Lab Results 12/12/23 12/12/23 12/12/23 Range/Units 11:06 11:06 11:06 WBC 4.0 (3.8-10.6) k/uL RBC 4.92 (3.80-5.40) m/uL Hgb 15.0 (11.4-16.0) gm/dL Hct 43.3 (34.0-46.0) % MCV 88.1 (80.0-100.0) fL MCH 30.5 (25.0-35.0) pg MCHC 34.6 (31.0-37.0) g/dL RDW 12.9 (11.5-15.5) % Plt Count 206 (150-450) k/uL MPV 7.7 Neutrophils % 57 % Lymphocytes % 30 % Monocytes % 9 % Eosinophils % 1 % Basophils % 0 % Neutrophils # 2.3 (1.3-7.7) k/uL Lymphocytes # 1.2 (1.0-4.8) k/uL Monocytes # 0.4 (0-1.0) k/uL Eosinophils # 0.1 (0-0.7) k/uL Basophils # 0.0 (0-0.2) k/uL PT 10.6 (10.0-12.5) sec INR 1.0 (<1.2) APTT 25.9 (22.0-30.0) sec Sodium 134 L (137-145) mmol/L Potassium 4.3 (3.5-5.1) mmol/L Chloride 97 L (98-107) mmol/L Carbon Dioxide 30 (22-30) mmol/L Anion Gap 7 mmol/L BUN 17 (7-17) mg/dL Creatinine 0.66 (0.52-1.04) mg/dL Est GFR (CKD-EPI)AfAm >90 (>60 ml/min/1.73 sqM) Est GFR (CKD-EPI)NonAf >90 (>60 ml/min/1.73 sqM) Glucose 89 (74-99) mg/dL Calcium 9.4 (8.4-10.2) mg/dL Magnesium 2.0 (1.6-2.3) mg/dL Total Bilirubin 0.5 (0.2-1.3) mg/dL AST 32 (14-36) U/L ALT 23 (4-34) U/L Alkaline Phosphatase 111 (38-126) U/L Troponin I (0.000-0.034) ng/mL Total Protein 7.3 (6.3-8.2) g/dL Albumin 4.6 (3.5-5.0) g/dL 12/12/23 Range/Units 11:06 WBC (3.8-10.6) k/uL RBC (3.80-5.40) m/uL Hgb (11.4-16.0) gm/dL Hct (34.0-46.0) % MCV (80.0-100.0) fL MCH (25.0-35.0) pg MCHC (31.0-37.0) g/dL RDW (11.5-15.5) % Plt Count (150-450) k/uL MPV Neutrophils % % Lymphocytes % % Monocytes % % Eosinophils % % Basophils % % Neutrophils # (1.3-7.7) k/uL Lymphocytes # (1.0-4.8) k/uL Monocytes # (0-1.0) k/uL Eosinophils # (0-0.7) k/uL Basophils # (0-0.2) k/uL PT (10.0-12.5) sec INR (<1.2) APTT (22.0-30.0) sec Sodium (137-145) mmol/L Potassium (3.5-5.1) mmol/L Chloride (98-107) mmol/L Carbon Dioxide (22-30) mmol/L Anion Gap mmol/L BUN (7-17) mg/dL Creatinine (0.52-1.04) mg/dL Est GFR (CKD-EPI)AfAm (>60 ml/min/1.73 sqM) Est GFR (CKD-EPI)NonAf (>60 ml/min/1.73 sqM) Glucose (74-99) mg/dL Calcium (8.4-10.2) mg/dL Magnesium (1.6-2.3) mg/dL Total Bilirubin (0.2-1.3) mg/dL AST (14-36) U/L ALT (4-34) U/L Alkaline Phosphatase (38-126) U/L Troponin I <0.012 (0.000-0.034) ng/mL Total Protein (6.3-8.2) g/dL Albumin (3.5-5.0) g/dL Disposition Clinical Impression: SVT (supraventricular tachycardia) Disposition: HOME SELF-CARE Condition: Fair Instructions (If sedation given, give patient instructions): Supraventricular Tachycardia (ED) Prescriptions: Metoprolol Tartrate 12.5 mg PO BID #28 tab Is patient prescribed a controlled substance at d/c from ED?: No Referrals: Gustavo Fatima DO [STAFF PHYSICIAN] - 1-2 days Time of Disposition: 12:14
[2023-12-12] MEDS: SODIUM CHLORIDE 0.9% 1,000 ML IV STA (11:14)
[2023-12-12 11:16] LABS: Basophils % (A) 0 %; Eosinophils # (A) 0.1 k/uL (0-0.7); Eosinophils % (A) 1 %; HCT 43.3 % (34.0-46.0); Lymphocytes # (A) 1.2 k/uL (1.0-4.8); Lymphocytes % (A) 30 %; MCH 30.5 pg (25.0-35.0); MCHC 34.6 g/dL (31.0-37.0); MCV 88.1 fL (80.0-100.0); Mean Platelet Volume 7.7; Monocytes # (A) 0.4 k/uL (0-1.0); Monocytes % (A) 9 %; Neutrophils # (A) 2.3 k/uL (1.3-7.7); Neutrophils % (A) 57 %; Platelet Count 206 k/uL (150-450); RBC 4.92 m/uL (3.80-5.40); RDW 12.9 % (11.5-15.5)
[2023-12-12] MEDS: ADENOSINE 3 MG/ML 2 ML VIAL IVP STA (11:28)
[2023-12-12 11:29] LABS: ALT 23 U/L (4-34); AST 32 U/L (14-36); African American GFR (CKD) >90 (>60 ml/min/1.73 sqM); Albumin 4.6 g/dL (3.5-5.0); Alkaline Phosphatase 111 U/L (38-126); Anion Gap 7 mmol/L; Blood Urea Nitrogen 17 mg/dL (7-17); Calcium 9.4 mg/dL (8.4-10.2); Carbon Dioxide 30 mmol/L (22-30); Chloride 97 mmol/L (98-107); Glucose 89 mg/dL (74-99); Non-African American GFR(CKD) >90 (>60 ml/min/1.73 sqM); Potassium 4.3 mmol/L (3.5-5.1); Sodium 134 mmol/L (137-145); Total Bilirubin 0.5 mg/dL (0.2-1.3); Total Protein 7.3 g/dL (6.3-8.2)
[2023-12-12 11:43] VITALS: RESP 18
[2023-12-12 11:45] LABS: Partial Thromboplastin Time 25.9 sec (22.0-30.0); Prothrombin Time 10.6 sec (10.0-12.5)
--- NOTE | 2023-12-12 11:54 | XR ---
EXAMINATION TYPE: XR chest 2V DATE OF EXAM: 12/12/2023 COMPARISON: NONE HISTORY: Dysrhythmia TECHNIQUE: Frontal and lateral views of the chest are obtained. FINDINGS: Electronic devices obscure the upper lung lemons. There are no lung opacities in the visualized por tions of the lungs. There is hyperinflation lungs and flattening the diaphragms consistent with COPD. The heart and pulmonary vasculature are normal. There is no pleural effusion or pneumothorax. The osseous structures are intact IMPRESSION: 1. No acute cardiopulmonary disease. 2. Marked COPD. [facility], , 12/12/2023 11:52 AM
[2023-12-12] MEDS: METOPROLOL TARTRATE 12.5 MG TAB PO STA (12:25)
[2023-12-12 12:32] VITALS: BP 144/82; PULSE 86; TEMP 98.2
== END 2023-12-12 12:37 | disposition home or self-care (01) ==
LOC: EC 10:47
DX: I47.10 Supraventricular tachycardia, unspecified (principal); Z88.0 Allergy status to penicillin; Z88.1 Allergy status to other antibiotic agents; Z88.2 Allergy status to sulfonamides
CPT/HCPCS: 36415; 93005; 80053; 83735; 84484; 85025; 85610; 85730; 71046; 99285; 96374; 96361; J0153

== ENCOUNTER → 2024-05-12 | Outpatient (CLI) | payer MEDICARE ==
[2024-05-12 18:38] LABS: HGB 13.4 g/dL (12.0-15.0); MCH 29.5 pg (27.0-32.0); MCHC 33.5 g/dL (32.0-37.0); MCV 87.9 FL (80.0-97.0); Mean Platelet Volume 9.7 FL (9.5-12.2); NRBC Per 100 WBC 0 X 10*3/uL (0.00-0.01); Platelet Count 188 X 10*3/uL (140-440); RBC 4.55 X 10*6/uL (4.10-5.20); RDW 13.1 % (11.5-14.5); WBC 3.29 X 10*3/uL (4.50-10.00)
[2024-05-12 18:51] LABS: Blood Urea Nitrogen 11.2 mg/dL (9.0-27.0); Chloride 100 mmol/L (96-109); Potassium 4.4 mmol/L (3.5-5.5); Sodium 139 mmol/L (135-145)
== END | disposition home or self-care (01) ==
LOC: LABPAT 14:09
PROVIDERS: ATTEND Internal Medicine Clinical Cardiac Electrophysiology
DX: Z01.812 Encounter for preprocedural laboratory examination (principal); I47.10 Supraventricular tachycardia, unspecified
CPT/HCPCS: 80051; 82565; 84520; 85027

== ENCOUNTER → 2024-05-17 | Outpatient (CLI) | payer MEDICARE ==
[2024-05-17 12:56] VITALS: BP 151/80; PULSE 70; RESP 16; TEMP 98
--- NOTE | 2024-05-17 13:16 | P.HPOB ---
History of Present Illness H&P Date: 05/17/24 Chief Complaint: The patient is here for her routine gynecologic exam. This is a 64-year-old -0-1-2 with an LMP of 2011. Patient is without gynecologic complaints. Review of Systems The patient has lost 10 pounds over the last year. Review of systems is unremarkable. Musculoskeletal: She broke a bone in her hand after a fall. This was slow to heal. Past Medical History Past Medical History: Cancer, Neurologic Disorder Additional Past Medical History / Comment(s): Multiple sclerosis; Trigeminal Neuralgia. Basal cell skin cancer and near the left eye. Intermittent SVT. 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 History of Any Multi-Drug Resistant Organisms: None Reported Past Surgical History: Orthopedic Surgery, Tubal Ligation Additional Past Surgical History / Comment(s): Brain surgery/ microvascular decompression; right torn shoulder labrum repair; Colonoscopy 2021(next after 5y r) Past Anesthesia/Blood Transfusion Reactions: No Reported Reaction Past Psychological History: Depression Smoking Status: Never smoker Past Alcohol Use History: Occasional (Socially drinks alcohol.) Past Drug Use History: None Reported Additional History: She has been since 1984. She does not work outside of the home. - Past Family History Father Family Medical History: Cancer, Coronary Artery Disease (CAD) Additional Family Medical History / Comment(s): colorectal CA Mother Family Medical History: Hypertension, Rheumatoid Arthritis (RA) Additional Family Medical History / Comment(s): Osteoporosis. Medications and Allergies Home Medications Medication Instructions Recorded Confirmed Type Gabapentin [Neurontin] 900 mg PO TID 12/23/17 05/17/24 History OXcarbazepine 600 mg PO HS 12/23/17 05/17/24 History OXcarbazepine [Trileptal] 300 mg PO QAM 12/23/17 05/17/24 History Pregabalin [Lyrica] 300 mg PO BID 12/23/17 05/17/24 History Cholecalciferol (Vitamin D3) 125 mcg PO QAM 06/14/20 05/17/24 History [Vitamin D3 (5000 Iu)] Cyanocobalamin (Vitamin B-12) 1,000 mcg PO QAM 06/14/20 05/17/24 History [Vitamin B-12] Multivitamins, Thera [Multivitamin 1 tab PO QAM 06/14/20 05/17/24 History (formulary)] Calcium Carbonate [Calcium] 600 mg PO DAILY 11/05/21 05/17/24 History Magnesium 200 mg PO DAILY 06/12/22 05/17/24 History Metoprolol Tartrate 12.5 mg PO BID #28 tab 12/12/23 05/17/24 Rx Allergies Allergy/AdvReac Type Severity Reaction Status Date / Time carbamazepine [From Tegretol] AdvReac Rash/Hives Verified 05/17/24 12:53 Penicillins AdvReac Rash/Hives Verified 05/17/24 12:53 Sulfa (Sulfonamide AdvReac Rash/Hives Verified 05/17/24 12:53 Antibiotics) Exam Vital Signs Temp Pulse Resp BP Pulse Ox 05/17/24 12:54 98 F 70 16 151/80 98 Intake and Output 05/16/24 05/17/24 05/17/24 22:59 06:59 14:59 Other: Weight 57.606 kg Height 5 feet 8 inches, weight 127 pounds, BMI 19.3. This is a well-developed well-nourished white female who is alert and oriented times 3 in no acute distress. HEENT: Within normal limits. NECK: Supple without mass or thyromegaly. CHEST AND LUNGS: Clear to auscultation. HEART: Regular rate and rhythm. BREASTS: Are without mass or discharge. AXILLARY EXAM: Negative for adenopathy. BACK: Negative for CVA tenderness. ABDOMEN: Soft, nontender, without palpable masses. PELVIC EXAM: Normal external genitalia mild atrophy. Cervix and vagina appear normal with mild atrophy. There is no unusual discharge. There is no evidence of prolapse. The uterus is midposition, nongravid size and nontender. There are no palpable adnexal masses or tenderness. RECTAL EXAM: Rectovaginal exam is negative for mass or tenderness and is negative for occult blood. EXTREMITIES: Nontender. IMPRESSION: 1. 64-year-old menopausal female with normal gynecologic exam. 2. History of osteopenia. PLAN: 1. Pap smear was deferred since she had a negative Pap smear cotest on 11/11/2021. 2. Self breast awareness was discussed with the patient. We have also discussed symptoms associated with inflammatory breast cancer. 3. Screening mammogram will be due in about 1 month. She states she has an order slip for this through Dr. Antoine Dinero. 4. Osteoporosis prevention was discussed. I have stressed the importance of adequate calcium, vitamin D and regular exercise. Recommended amounts of calcium and vitamin D were also discussed. Bone density testing will be done today. We will consider treatment after reviewing the numbers. We can consider treatment for osteopenia since she did have a bone fracture in her hand. 5. She was advised to return in one year for her annual well woman exam.
--- NOTE | 2024-05-17 14:41 | BD ---
EXAMINATION TYPE: Axial Bone Density DATE OF EXAM: 05/17/2024 CLINICAL HISTORY: 64 years old Female. ICD-10 CODE: Z78.0 POST MENOPAUSAL WITHOUT HRT , Additional H istory: Height: 66.3 Weight: 125 FRAX RISK QUESTIONS: Family History (Parent hip fracture): no Glucocorticoids (More than 3mos): no (Ex: prednisone, prednisolone, methylprednisolone, dexamethasone, and hydrocortisone). History of Fracture in Adulthood: yes 3. Menopause before 45: no at 52 RISK FACTORS HISTORY OF: hx of left hand fx 2 mos ago and right foot fx over 10 yrs ago MEDICATIONS: Metroprolol, vit d and calcium, EXAM MEASUREMENTS: Bone mineral densitometry was performed using the [employer] System. Bone mineral density as measured about the Lumbar spine is: ----- L1-L4(G/cm2): 0.972 T Score Values are as follows: ----- L1: -2.8 ----- L2: -2.2 ----- L3: -1.2 ----- L4: -1.3 ----- L1-L4: -1.7 Z Score Values are as follows: ----- L1: -1.1 ----- L2: -0.5 ----- L3: 0.5 ----- L4: 0.4 ----- L1-L4: 0.0 Bone mineral density has: Decreased -0.3% since study of: 11.28.2021 Bone mineral density about the R hip (g/cm2): 0.723 Bone mineral density about the L hip (g/cm2): 0.852 T Score values are as follows: -----R Neck: -1.9 -----L Neck: -1.4 -----R Total: -2.3 -----L Total: -1.2 Z Score values are as follows: -----R Neck: -0.3 -----L Neck: 0.1 -----R Total: -1.0 -----L Total: 0.0 Bone mineral density has: Decreased -1.5% since study of: 11.28.2021 FRAX%s: The graph provided illustrates a 14.5% chance for a major osteoporotic fx and a 2.0% chance f or the hips probability for fx in 10 years time. IMPRESSION: Osteopenia (T Score between -2.5 and -1). There is slightly increased risk of fracture and the patient may be considered for treatment. Re-Screen 2-5 years. NOTE: T-SCORE=SD OF THE YOUNG ADULT MEAN. [facility], , 05/17/2024 2:39 PM
== END ==
LOC: WWCWWP 12:41
PROVIDERS: ATTEND Obstetrics & Gynecology
DX: Z01.419 Encounter for gynecological examination (general) (routine) without abnormal findings (principal); M85.80 Other specified disorders of bone density and structure, unspecified site; Z78.0 Asymptomatic menopausal state; Z88.0 Allergy status to penicillin; Z88.2 Allergy status to sulfonamides; Z88.8 Allergy status to other drugs, medicaments and biological substances
CPT/HCPCS: 77080

== ENCOUNTER 2024-05-24 11:02 | Day surgery (SDC) | payer MEDICARE ==
[2024-05-19 15:10] VITALS: BMI 19.0
[2024-05-24] MEDS: SODIUM CHLORIDE 0.9% 1,000 ML IV SCH (11:33)
[2024-05-24] MEDS: IV FLUID CONTINUATION 1,000 ML IV ONE (11:34)
[2024-05-24] MEDS ORDERED: PHENYLEPHRINE-0.9% NACL SYG 1,000 MCG/10 ML SYRINGE ONE (14:00)
[2024-05-24] MEDS ORDERED: fentaNYL (PF) 50 MCG/ML 2 ML AMP ONE (14:00)
[2024-05-24] MEDS ORDERED: MIDAZOLAM 2 MG/2 ML VIAL ONE (14:00)
[2024-05-24] MEDS ORDERED: ISOPROTERENOL 250 MCG/1.25 ML SYR IV ONE (14:00)
[2024-05-24] MEDS: LIDOCAINE 1% INJ 10MG/ML (20 ML MDV) SQ ONE (14:38)
[2024-05-24] MEDS: HEPARIN SODIUM (1,000 UNIT/ML) 1,000 UNIT in SODIUM CHLORIDE 0.9% 1,000 ML IRRIGATION ONE (17:04)
[2024-05-24] MEDS: LACTATED RINGERS 1,000 ML IV ONE (17:05)
--- NOTE | 2024-05-24 17:40 | P.HPCAR ---
History of Present Illness This is Dr. Gonzalez dictating an H/P on this patient The patient was interviewed and examined IMPRESSION / ASSESSMENT: Recurrent palpitations and SVT Increasing frequency and duration Adenosine sensitive Recurrent ER visits Presyncope during these episodes Dyslipidemia PLAN: Diagnose EP study and SVT ablation HPI Patient has had recurrent episodes of palpitations with associated presyncope She has gone to the emergency room on several occasions and SVT was documented. IV adenosine was used to terminate the tachycardia She has a right bundle branch block pattern during SVT ROS: No fever chills or rigors, no cough, phlegm or expectoration, no nausea, vomiting or diarrhea, no hematuria, dysuria, no musculoskeletal complaints, no strokes or seizures, no skin lesions. EXAMINATION: Blood pressure 155/63 mmHg pulse rate 64 beats minute afebrile Breath sounds are clear no rhonchi no crackles Heart sounds S1-S2 normal breath sounds are clear REVIEW OF LABS, ECG & MEDICAL DATA TSH is normal 0.8 Physical Exam Vitals: Vital Signs Temp Pulse Resp BP BP Pulse Ox 05/24/24 11:43 97.9 F 64 16 178/77 155/63 99 Intake and Output 05/24/24 05/24/24 05/24/24 06:59 14:59 22:59 Intake Total 500 380 Balance 500 380 Intake: IV 500 380 Other: Weight 58.3 kg Past Medical History Past Medical History: Cancer, Hyperlipidemia, Neurologic Disorder, Supraventricular Tachycardia (SVT) Additional Past Medical History / Comment(s): Multiple sclerosis; Trigeminal Neuralgia. Basal cell skin cancer and near the left eye. History of Any Multi-Drug Resistant Organisms: None Reported Past Surgical History: Orthopedic Surgery, Tubal Ligation Additional Past Surgical History / Comment(s): Brain surgery/ microvascular decompression; right torn shoulder labrum repair; Colonoscopy 2021(next after 5yr) Past Anesthesia/Blood Transfusion Reactions: No Reported Reaction Smoking Status: Never smoker - Past Family History Father Family Medical History: Cancer, Coronary Artery Disease (CAD) Additional Family Medical History / Comment(s): colorectal CA Mother Family Medical History: Hypertension, Rheumatoid Arthritis (RA) Additional Family Medical History / Comment(s): Osteoporosis. Physical Examination Vital Signs Temp Pulse Resp BP BP Pulse Ox 05/24/24 11:43 97.9 F 64 16 178/77 155/63 99 Intake and Output 05/24/24 05/24/24 05/24/24 06:59 14:59 22:59 Intake Total 500 380 Balance 500 380 Intake: IV 500 380 Other: Weight 58.3 kg Results Current Medications Generic Name Dose Route Start Last Admin Trade Name Freq PRN Reason Stop Dose Admin Acetaminophen 650 mg 05/25/24 00:00 Acetaminophen Tab 325 Mg Tab PO Q6HR PRN Mild Pain (Scale 1 to 3) Atorvastatin Calcium 10 mg 05/25/24 09:00 Atorvastatin 10 Mg Tab PO DAILY JESSICA Sodium Chloride 1,000 mls @ 20 mls/hr 05/24/24 05:59 05/24/24 11:33 Saline 0.9% IV 06/23/24 05:58 20 mls/hr .Q24H JESSICA Administration Acetaminophen 1,000 mg/ IV 100 mls @ 400 mls/hr 05/24/24 18:00 Solution IVPB 05/24/24 18:14 ONCE ONE Magnesium Oxide 200 mg 05/25/24 09:00 Magnesium Oxide 400 Mg Tab PO DAILY JESSICA Oxcarbazepine 600 mg 05/24/24 21:00 Oxcarbazepine 300 Mg Tab PO BID JESSICA Pregabalin 150 mg 05/24/24 22:00 Pregabalin 75 Mg Cap PO TID JESSICA Sodium Chloride 12 ml 05/24/24 17:25 Sodium Chloride 0.9% Flush 10 Ml Syringe IV Q12HR PRN Line Flush Intake and Output 05/24/24 05/24/24 05/24/24 06:59 14:59 22:59 Intake Total 500 380 Balance 500 380 Intake: IV 500 380 Other: Weight 58.3 kg Patient Weight 05/25/24 06:59 Weight 58.3 kg
--- NOTE | 2024-05-24 17:47 | P.EPPROC ---
- EP Procedure Note Electrophysiology Procedure Note: Indication for procedure Recurrent SVT, adenosine sensitive associated presyncope Final diagnosis AV rupert reentrant tachycardia Status post successful ablation of AV rupert reentry/slow pathway and the tachycardia was rendered noninducible Details Patient was brought to the EP lab in a fasting state. Written informed consent was obtained prior to the procedure. Venous sheaths were placed in the right left femoral veins and via these diagnostic catheters were placed. An intracardiac echo catheter was placed Catheters were placed in the high right atrium His bundle area AV rupert area slow pathway area right ventricle and coronary sinus At baseline ME interval 172 ms, QRS 108 and QT interval 431 ms AH 103 ms and HV interval 34 ms Sinus node recovery times were 793, 783 and 950 ms Comparison pacing revealed a rupert response In the baseline state there was no evidence of slow pathway conduction On Isopril's antegrade slow pathway conduction was noted Baseline AV rupert Wenckebach block 540 ms. VA Wenckebach block 460 ms On Isopril antegrade slow pathway conduction was noted during straight pacing followed by induction of SVT. Short RP tachycardia VAV response noted with ventricular pacing AV rupert reentry diagnosed Mapping and ablation catheter was placed. A long sheath was placed His bundle was mapped. Coronary sinus was mapped tricuspid annulus was tagged RF ablation was performed just outside the coronary sinus and below it junctional rhythm was obtained An RF line that was successful was made from this area to the coronary sinus which resulted in complete illumination of AV rupert reentry 40 W of power had to be used at the site for complete illumination of the slow pathway, multiple lesions Testing was performed on Isopril Straight pacing and extra stimulation was performed There was evidence for any AV node reentry at the end of the procedure There was no evidence for antegrade slow pathway conduction at the end of the procedure Intracardiac echo revealed absence of any pericardial effusion Patient Toller the procedure well without any acute complications Plan discontinue metoprolol
--- NOTE | 2024-05-24 17:48 | P.EPPROC ---
- EP Procedure Note Electrophysiology Procedure Note: Dear Dr. English Jossy Peralta underwent a diagnostic EP study which revealed AV rupert reentry She underwent successful ablation for this and the SVT was rendered noninducible I am stopping metoprolol now and we will see her in the office in about a week to 10 days Thank you for entrusting me with the care of the patient Warm regards Sincerely Marcellus Gonzalez
[2024-05-24] MEDS: ACETAMINOPHEN IV (For NPO) 1,000 MG in EMPTY BAG 1 BAG IVPB ONE (18:29)
[2024-05-24] MEDS: OXcarbazepine 300 MG TAB PO SCH (21:18)
[2024-05-24] MEDS: PREGABALIN 75 MG CAP PO SCH (21:19)
[2024-05-25] MEDS ORDERED: ACETAMINOPHEN TAB 325 MG TAB PO PRN
[2024-05-25 08:18] VITALS: BP 128/70; PULSE 69; RESP 16; TEMP 97.8
[2024-05-25] MEDS: ATORVASTATIN 10 MG TAB PO SCH (08:24)
[2024-05-25] MEDS: MAGNESIUM OXIDE 400 MG TAB PO SCH (08:24)
--- NOTE | 2024-05-25 13:11 | P.PN ---
Progress Note - Text Progress Note Date: 05/25/24 OUTPATIENT FOLLOW-UP NOTE TEST(S)/RESULTS: Bone density test done on 05/17/2024 showed osteopenia. It should be noted that the L1 score was -2.8. METHOD OF NOTIFICATION: The patient was notified by phone on 05/25/2024. PATIENT COMMENTS: DIAGNOSIS: Focal osteoporosis DISCUSSION: The patient did have a hand bone fracture. With the L1 T-score in the osteoporosis range, I have recommended that she consider treatment. We have discussed Fosamax along with its pros and cons. We have discussed an increased risk for esophageal ulceration which can be minimized by taking the medication properly. We have also discussed osteonecrosis of the jaw with certain types of jaw procedures or dental surgeries that involve the jaw. Information on osteoporosis and alendronate will be mailed to the patient. The lab slip for serum calcium and serum creatinine will also be sent to the patient. If she de sires to proceed with this medication, she was instructed to have the blood tests drawn or get me a copy of recent blood tests that include these 2 tests. She was also instructed to call if she has any questions. PLAN: As above.
== END 2024-05-25 10:50 | disposition home or self-care (01) ==
LOC: CATHEP 11:02 → 6NMEDSUR 16:55 → CATHEP 05-25 10:50
PROVIDERS: ATTEND Internal Medicine Clinical Cardiac Electrophysiology
DX: I47.19 Other supraventricular tachycardia (principal); E78.5 Hyperlipidemia, unspecified; I45.10 Unspecified right bundle-branch block; I44.1 Atrioventricular block, second degree; G35 Multiple sclerosis
CPT/HCPCS: 93623; 93653; 86900; 86901; 84443; 86850; C1894; C1769; C1766; C1760; C1730 ×3; C1759; C1732; J2003; J1644; J0131

== ENCOUNTER 2024-05-28 16:26 | Emergency (ER) | payer MEDICARE ==
[2024-05-28 16:35] VITALS: TEMP 97.9
--- NOTE | 2024-05-28 16:37 | ED ---
General Adult HPI - General Chief complaint: Chest Pain Stated complaint: tachycardia high blood pressure Time Seen by Provider: 05/28/24 16:36 Source: patient, family Mode of arrival: ambulatory Limitations: no limitations - History of Present Illness Initial comments: Patient presents to the ED with her for evaluation. Patient states that she had an ablation procedure for her SVT performed by Dr. Gonzalez ( cardiology) 4 days ago. Patient states that she has noticed today that her blood pressure has been more elevated than usual. She reports that her blood pressure was in the 150s over 90s today. Patient also reports that her heart rate was elevated in the 80s to 90s today. Patient states that she stopped taking her metoprolol about a week or so ago as instructed by her paper baler, but she denies any other medication changes recently. Patient states that she has had palpitations today, but she denies having any other symptoms. Patient denies having any pain, fever or chills, headache, focal numbness/weakness/neuro deficit, chest pain or pressure, dyspnea, cough or cold symptoms, dizziness, abdominal pain, nausea/vomiting/diaphoresis, diarrhea, bloody or melanotic stool, dysuria or urinary symptoms, decreased urine output, leg or calf swelling or pain, or any other symptoms or complaints. - Related Data Home Medications Medication Instructions Recorded Confirmed Gabapentin [Neurontin] 900 mg PO DAILY@0800 12/23/17 05/28/24 OXcarbazepine 600 mg PO BID@0800,2300 12/23/17 05/28/24 Cholecalciferol (Vitamin D3) 125 mcg PO DAILY@0800 06/14/20 05/28/24 [Vitamin D3 (5000 Iu)] Cyanocobalamin (Vitamin B-12) 1,000 mcg PO DAILY@0800 06/14/20 05/28/24 [Vitamin B-12] Multivitamins, Thera [Multivitamin 1 tab PO DAILY@79906/14/20 05/28/24 (formulary)] Calcium Carbonate [Calcium] 600 mg PO DAILY@0800 11/05/21 05/28/24 Magnesium 200 mg PO DAILY@0800 06/12/22 05/28/24 Atorvastatin [Lipitor] 10 mg PO DAILY@0800 05/19/24 05/28/24 Pregabalin [Lyrica] 150 mg PO TID@0800,1530,2300 05/19/24 05/28/24 Gabapentin [Neurontin] 600 mg PO BID@1530,2300 05/28/24 05/28/24 Allergies Allergy/AdvReac Type Severity Reaction Status Date / Time carbamazepine [From Tegretol] AdvReac Rash/Hives Verified 05/28/24 17:30 Penicillins AdvReac Rash/Hives Verified 05/28/24 17:30 Sulfa (Sulfonamide AdvReac Rash/Hives Verified 05/28/24 17:30 Antibiotics) Review of Systems ROS Statement: Those systems with pertinent positive or pertinent negative responses have been documented in the HPI. ROS Other: All systems not noted in ROS Statement are negative. Past Medical History Past Medical History: Cancer, Hyperlipidemia, Neurologic Disorder, Supraventricular Tachycardia (SVT) Additional Past Medical History / Comment(s): Multiple sclerosis; Trigeminal Neuralgia. Basal cell skin cancer and near the left eye. History of Any Multi-Drug Resistant Organisms: None Reported Past Surgical History: Orthopedic Surgery, Tubal Ligation Additional Past Surgical History / Comment(s): Brain surgery/ microvascular decompression; right torn shoulder labrum repair; Colonoscopy 2021(next after 5yr) Past Anesthesia/Blood Transfusion Reactions: No Reported Reaction Past Psychological History: Depression Smoking Status: Never smoker - Past Family History Father Family Medical History: Cancer, Coronary Artery Disease (CAD) Additional Family Medical History / Comment(s): colorectal CA Mother Family Medical History: Hypertension, Rheumatoid Arthritis (RA) Additional Family Medical History / Comment(s): Osteoporosis. General Exam Limitations: no limitations General appearance: alert, in no apparent distress Head exam: Present: atraumatic Eye exam: Present: normal appearance ENT exam: Present: mucous membranes moist Neck exam: Present: other (Trachea is in midline) Respiratory exam: Present: normal lung sounds bilaterally. Absent: respiratory distress, wheezes, rales, rhonchi, stridor Cardiovascular Exam: Present: regular rate, normal rhythm, normal heart sounds, other (Normal radial pulses bilaterally) GI/Abdominal exam: Present: soft. Absent: distended, tenderness, guarding Extremities exam: Absent: tenderness, pedal edema, calf tenderness Neurological exam: Present: alert, oriented X3 Psychiatric exam: Present: normal affect Skin exam: Present: warm, dry, normal color Course Vital Signs 05/28/24 05/28/24 16:31 17:42 Temperature 97.9 F Pulse Rate 79 74 Respiratory 19 12 Rate Blood Pressure 171/86 145/87 O2 Sat by Pulse 99 Oximetry - Reevaluation(s) Reevaluation #1: 05/28/24 17:53 Dr. Ward has seen/evaluated the patient in the ED and has reviewed the patient's test results. I have discussed the patient's case with him in the ED. He state s that he feels that the patient is fine to be discharged home at this time. He states that he will be starting the patient on losartan for management of her blood pressure. He feels that the patient's elevated troponin is likely due to her recent ablation procedure. He does not feel that the patient requires hospitalization or repeat troponin draws. Patient continues to deny having any chest pain or dyspnea while in the ED. Patient remains alert and breathing comfortably with a normal room air oxygen saturation. Patient is aware of her test results, and she feels comfortable being discharged home with her at this time. She was counseled about palpitations, and she was clearly explained return and follow-up instructions. EKG Findings - EKG Comments: EKG Findings:: ED physician interpretation (interpreted by me): Normal sinus rhythm, no ectopy, ventricular rate of 79 bpm, normal MO interval, mildly prolonged QRS duration of 122 ms, nonspecific intraventricular conduction delay, no ST elevation, no significant change when compared to 05/25/2024 EKG Medical Decision Making - Medical Decision Making Was pt. sent in by a medical professional or institution (, PA, SPECIMEN PREPARATION ASSISTANT, urgent care, hospital, or long term...) When possible be specific @ -No Did you speak to anyone other than the patient for history (EMS, parent, family, police, friend...)? What history was obtained from this source @ -No Did you review nursing and triage notes (agree or disagree)? Why? @ -I reviewed and agree with nursing and triage notes Were old charts reviewed (outside hosp., previous admission, EMS record, old EKG, old radiological studies, urgent care reports/EKG's, long term records)? Report findings @ -No old charts were reviewed Differential Diagnosis (chest pain, altered mental status, abdominal pain women, abdominal pain men, vaginal bleeding, weakness, fever, dyspnea, syncope, headache, dizziness, GI bleed, back pain, seizure, CVA, palpatations, mental health, musculoskeletal)? @ -Dysrhythmia, tachycardia, SVT, atrial fibrillation, atrial flutter, PVCs, electrolyte abnormality, dehydration, hypertension, medication reaction, medication withdrawal, ACS/MO, this is not meant to be a complete list. EKG interpreted by me (3pts min.). @ -As above X-rays interpreted by me (1pt min.). @ -Chest x-ray was reviewed myself and shows no acute cardiopulmonary disease. I agree with the radiologist's interpretation as above. CT interpreted by me (1pt min.). @ -None done U/S interpreted by me (1pt. min.). @ -None done What testing was considered but not performed or refused? (CT, X-rays, U/S, labs)? Why? @ -None What meds were considered but not given or refused? Why? @ -None Did you discuss the management of the patient with other professionals (professionals i.e. , PA, SPECIMEN PREPARATION ASSISTANT, lab, RT, psych nurse, director of social services, matting press tender, teacher, sheriff officer, lead case manager)? Give summary @ -As above. Was smoking cessation discussed for >3mins.? @ -No Was critical care preformed (if so, how long)? @ -No Were there social determinants of health that impacted care today? How? (Homelessness, low income, unemployed, alcoholism, drug addiction, tr ansportation, low edu. Level, literacy, decrease access to med. care, prison, rehab)? @ -No Was there de-escalation of care discussed even if they declined (Discuss DNR or withdrawal of care, Hospice)? DNR status @ -No What co-morbidities impacted this encounter? (DM, HTN, Smoking, COPD, CAD, Cancer, CVA, ARF, Chemo, Hep., AIDS, mental health diagnosis, sleep apnea, morbid obesity)? @ -None Was patient admitted / discharged? Hospital course, mention meds given and route, prescriptions, significant lab abnormalities, going to OR and other pertinent info. @ -Patient has been in normal sinus rhythm on the grounds crew supervisor while in the ED. patient denies having any chest pain or dyspnea. Patient has a normal room air oxygen saturation. Patient's troponin is minimally elevated, but the rest of her labs are fairly unremarkable. Patient's chest x-ray is unremarkable. Dr. Ward (cardiology) has seen the patient in the ED, and he recommends discharging the patient home at this time. He states that he feels that the patient's troponin elevation is likely due to her recent ablation procedure. He states that he will start the patient on losartan for management of her blood pressure. He has no other recommendations at this time. Patient is aware of her test results, and she feels comfortable being discharged home at this time. Will discharge patient home with her at this time. Undiagnosed new problem with uncertain prognosis? @ -No Drug Therapy requiring intensive monitoring for toxicity (Heparin, Nitro, Insulin, Cardizem)? @ -No Were any procedures done? @ -No Diagnosis/symptom? @ -Palpitations, mildly elevated troponin Acute, or Chronic, or Acute on Chronic? @ -Default Uncomplicated (without systemic symptoms) or Complicated (systemic symptoms)? @ -Default Side effects of treatment? @ -No Exacerbation, Progression, or Severe Exacerbation? @ -No Poses a threat to life or bodily function? How? (Chest pain, USA, MO, pneumonia, PE, COPD, DKA, ARF, appy, cholecystitis, CVA, Diverticulitis, Homicidal, Suicidal, threat to staff... and all critical care pts) @ -No - Lab Data Result diagrams: 05/28/24 17:04 05/28/24 17:04 Lab Results 05/28/24 05/28/24 05/28/24 Range/Units 17:04 17:04 17:04 WBC 3.9 (3.8-10.6) k/uL RBC 4.36 (3.80-5.40) m/uL Hgb 12.6 (11.4-16.0) gm/dL Hct 38.6 (34.0-46.0) % MCV 88.4 (80.0-100.0) fL MCH 28.8 (25.0-35.0) pg MCHC 32.6 (31.0-37.0) g/dL RDW 13.4 (11.5-15.5) % Plt Count 172 (150-450) k/uL MPV 7.5 Neutrophils % 66 % Lymphocytes % 27 % Monocytes % 3 % Eosinophils % 1 % Basophils % 0 % Neutrophils # 2.6 (1.3-7.7) k/uL Lymphocytes # 1.0 (1.0-4.8) k/uL Monocytes # 0.1 (0-1.0) k/uL Eosinophils # 0.1 (0-0.7) k/uL Basophils # 0.0 (0-0.2) k/uL PT 10.3 (10.0-12.5) sec INR 0.9 (<1.2) APTT 24.1 (22.0-30.0) sec Sodium 134 L (137-145) mmol/L Potassium 3.8 (3.5-5.1) mmol/L Chloride 99 (98-107) mmol/L Carbon Dioxide 28 (22-30) mmol/L Anion Gap 7 mmol/L BUN 16 (7-17) mg/dL Creatinine 0.47 L (0.52-1.04) mg/dL Est GFR (CKD-EPI)AfAm >90 (>60 ml/min/1.73 sqM) Est GFR (CKD-EPI)NonAf >90 (>60 ml/min/1.73 sqM) Glucose 148 H (74-99) mg/dL Calcium 9.3 (8.4-10.2) mg/dL Magnesium 1.9 (1.6-2.3) mg/dL Total Bilirubin 0.3 (0.2-1.3) mg/dL AST 29 (14-36) U/L ALT 21 (4-34) U/L Alkaline Phosphatase 95 (38-126) U/L Troponin I (0.000-0.034) ng/mL NT-Pro-B Natriuret Pep 383 pg/mL Total Protein 6.8 (6.3-8.2) g/dL Albumin 3.9 (3.5-5.0) g/dL 05/28/24 Range/Units 17:04 WBC (3.8-10.6) k/uL RBC (3.80-5.40) m/uL Hgb (11.4-16.0) gm/dL Hct (34.0-46.0) % MCV (80.0-100.0) fL MCH (25.0-35.0) pg MCHC (31.0-37.0) g/dL RDW (11.5-15.5) % Plt Count (150-450) k/uL MPV Neutrophils % % Lymphocytes % % Monocytes % % Eosinophils % % Basophils % % Neutrophils # (1.3-7.7) k/uL Lymphocytes # (1.0-4.8) k/uL Monocytes # (0-1.0) k/uL Eosinophils # (0-0.7) k/uL Basophils # (0-0.2) k/uL PT (10.0-12.5) sec INR (<1.2) APTT (22.0-30.0) sec Sodium (137-145) mmol/L Potassium (3.5-5.1) mmol/L Chloride (98-107) mmol/L Carbon Dioxide (22-30) mmol/L Anion Gap mmol/L BUN (7-17) mg/dL Creatinine (0.52-1.04) mg/dL Est GFR (CKD-EPI)AfAm (>60 ml/min/1.73 sqM) Est GFR (CKD-EPI)NonAf (>60 ml/min/1.73 sqM) Glucose (74-99) mg/dL Calcium (8.4-10.2) mg/dL Magnesium (1.6-2.3) mg/dL Total Bilirubin (0.2-1.3) mg/dL AST (14-36) U/L ALT (4-34) U/L Alkaline Phosphatase (38-126) U/L Troponin I 0.219 H* (0.000-0.034) ng/mL NT-Pro-B Natriuret Pep pg/mL Total Protein (6.3-8.2) g/dL Albumin (3.5-5.0) g/dL - Radiology Data Chest x-ray: No acute cardiopulmonary disease/process. Disposition Clinical Impression: Palpitations, Elevated troponin Disposition: HOME SELF-CARE Condition: Stable Instructions (If sedation given, give patient instructions): Heart Palpitations (ED) Additional Instructions: Return to the ER immediately should you develop chest pain or pressure, trouble breathing/shortness of breath, feeling dizzy or faint, a fever, nausea or vomiting, or new or worsening symptoms. Follow-up closely with your primary care provider, as well as your paper baler. Is patient prescribed a controlled substance at d/c from ED?: No Referrals: Jerman Ford MD [Primary Care Provider] - 1-2 days Marcellus Gonzalez MD [STAFF PHYSICIAN] - 1-2 days Time of Disposition: 18:02
[2024-05-28 17:13] LABS: Basophils % (A) 0 %; Eosinophils # (A) 0.1 k/uL (0-0.7); Eosinophils % (A) 1 %; HCT 38.6 % (34.0-46.0); HGB 12.6 gm/dL (11.4-16.0); Lymphocytes % (A) 27 %; MCH 28.8 pg (25.0-35.0); MCHC 32.6 g/dL (31.0-37.0); MCV 88.4 fL (80.0-100.0); Mean Platelet Volume 7.5; Monocytes # (A) 0.1 k/uL (0-1.0); Monocytes % (A) 3 %; Neutrophils # (A) 2.6 k/uL (1.3-7.7); Neutrophils % (A) 66 %; Platelet Count 172 k/uL (150-450); RBC 4.36 m/uL (3.80-5.40); RDW 13.4 % (11.5-15.5); WBC 3.9 k/uL (3.8-10.6)
[2024-05-28 17:21] LABS: ALT 21 U/L (4-34); AST 29 U/L (14-36); African American GFR (CKD) >90 (>60 ml/min/1.73 sqM); Albumin 3.9 g/dL (3.5-5.0); Alkaline Phosphatase 95 U/L (38-126); Anion Gap 7 mmol/L; Blood Urea Nitrogen 16 mg/dL (7-17); Calcium 9.3 mg/dL (8.4-10.2); Carbon Dioxide 28 mmol/L (22-30); Chloride 99 mmol/L (98-107); Glucose 148 mg/dL (74-99); Magnesium 1.9 mg/dL (1.6-2.3); Non-African American GFR(CKD) >90 (>60 ml/min/1.73 sqM); Potassium 3.8 mmol/L (3.5-5.1); Sodium 134 mmol/L (137-145); Total Bilirubin 0.3 mg/dL (0.2-1.3); Total Protein 6.8 g/dL (6.3-8.2)
[2024-05-28 17:25] LABS: INR 0.9 (<1.2); Partial Thromboplastin Time 24.1 sec (22.0-30.0); Prothrombin Time 10.3 sec (10.0-12.5)
[2024-05-28 17:29] LABS: NT-Pro-B-Type Natriuretic Pept 383 pg/mL
--- NOTE | 2024-05-28 17:48 | XR ---
EXAMINATION TYPE: XR chest 2V DATE OF EXAM: 05/28/2024 5:33 PM COMPARISON: Chest radiograph 12/12/2023. CLINICAL INDICATION: Female, 64 years old with history of Chest Pain; [facility] TECHNIQUE: XR chest 2V Frontal and lateral views of the chest. FINDINGS: Lungs/Pleura: There is no evidence of pleural effusion, focal consolidation, or pneumothorax. Pulmonary vascularity: Unremarkable. Heart/mediastinum: Cardiomediastinal silhouette is unremarkable. Musculoskeletal: No acute osseous pathology. Other findings: Stimulator devices overlying the chest wall. IMPRESSION: No acute cardiopulmonary disease/process. [facility], , 05/28/2024 5:46 PM
[2024-05-28] MEDS: LOSARTAN 25 MG TAB PO SCH (17:52)
--- NOTE | 2024-05-28 17:53 | P.CRDCN ---
History of Present Illness Consult date: 05/28/24 History of present illness: HISTORY OF PRESENTING ILLNESS: 64-year-old female who recently had a SVT ablation with Dr. Gonzalez was experiencing symptoms of palpitations, feeling weak. For this she checked her vitals at home and she noted that her heart rates were high and blood pressure was elevated. For this she contacted me via my pager. As I could not evaluate her at home I asked her to come to the ER. I evaluated her in the ER, She denies any symptoms of chest pain chest pressure. She denies any symptoms of palpitation at this time. Appears euvolemic. No concerns of pericardial effusion from clinical assessment. EKG does not show any signs of arrhythmias, normal sinus rhythm with no significant ST-T wave changes. No clinical signs of pericarditis Hemodynamically stable BP 171/89, repeat 142/80 Labs are essentially within normal limits with elevated troponin which could be related to recent ablation procedure. REVIEW OF SYSTEMS: 14 point review of system is negative except what is mentioned above in HPI. PHYSICAL EXAMINATION: Neck: Brisk carotid upstroke, no jugular venous distention. Lungs: Clear to auscultation. Heart: Regular rate and rhythm, S1-S2, , no murmur or rub. Abdomen: Soft nontender, positive bowel sounds. Extremities: No edema, intact distal pulses. Right groin was intact with no signs of hematoma or bleeding. Neuro: Alert, oritented, no focal deficits. Detailed neuro exam was not performed. ASSESSMENT: # Palpitations # Tachycardia # Essential hypertension # Recent SVT ablation 05/24/2024 PLAN: Since her metoprolol was stopped, she might be having some rebound tachycardia and hypertension from it. I would start her on losartan 25 mg daily for blood pressure management. Monitor blood pressure at home if blood pressure is less than 110 over 70 mmHg, do not take losartan. Follow-up with Dr. Gonzalez on outpatient basis Recommend using [employer] if in case she has palpitations to see if she has any underlying arrhythmias and shaded with Dr. Gonzalez At this time she is stable from cardiovascular standpoint, initial workup has been negative Okay to be discharged from cardiac standpoint Atnonio Ward MD, FACC, RPVI Thank you for allowing [facility] to participate in this patient's care. Feel free to reach out in case of any followup questions. Past Medical History Past Medical History: Cancer, Hyperlipidemia, Neurologic Disorder, Nicole praventricular Tachycardia (SVT) Additional Past Medical History / Comment(s): Multiple sclerosis; Trigeminal Neuralgia. Basal cell skin cancer and near the left eye. History of Any Multi-Drug Resistant Organisms: None Reported Past Surgical History: Orthopedic Surgery, Tubal Ligation Additional Past Surgical History / Comment(s): Brain surgery/ microvascular decompression; right torn shoulder labrum repair; Colonoscopy 2021(next after 5yr) Past Anesthesia/Blood Transfusion Reactions: No Reported Reaction Past Psychological History: Depression Smoking Status: Never smoker - Past Family History Father Family Medical History: Cancer, Coronary Artery Disease (CAD) Additional Family Medical History / Comment(s): colorectal CA Mother Family Medical History: Hypertension, Rheumatoid Arthritis (RA) Additional Family Medical History / Comment(s): Osteoporosis. Medications and Allergies Home Medications Medication Instructions Recorded Confirmed Type Gabapentin [Neurontin] 900 mg PO DAILY@0800 12/23/17 05/28/24 History OXcarbazepine 600 mg PO BID@0800,2300 12/23/17 05/28/24 History Cholecalciferol (Vitamin D3) 125 mcg PO DAILY@0800 06/14/20 05/28/24 History [Vitamin D3 (5000 Iu)] Cyanocobalamin (Vitamin B-12) 1,000 mcg PO DAILY@0800 06/14/20 05/28/24 History [Vitamin B-12] Multivitamins, Thera [Multivitamin 1 tab PO DAILY@0800 06/14/20 05/28/24 History (formulary)] Calcium Carbonate [Calcium] 600 mg PO DAILY@0800 11/05/21 05/28/24 History Magnesium 200 mg PO DAILY@0800 06/12/22 05/28/24 History Atorvastatin [Lipitor] 10 mg PO DAILY@0800 05/19/24 05/28/24 History Pregabalin [Lyrica] 150 mg PO TID@0800,1530,2300 05/19/24 05/28/24 History Gabapentin [Neurontin] 600 mg PO BID@1530,2300 05/28/24 05/28/24 History Allergies Allergy/AdvReac Type Severity Reaction Status Date / Time carbamazepine [From Tegretol] AdvReac Rash/Hives Verified 05/28/24 17:30 Penicillins AdvReac Rash/Hives Verified 05/28/24 17:30 Sulfa (Sulfonamide AdvReac Rash/Hives Verified 05/28/24 17:30 Antibiotics) Physical Exam Vitals: Vital Signs Temp Pulse Resp BP Pulse Ox 05/28/24 17:42 74 12 145/87 05/28/24 16:31 97.9 F 79 19 171/86 99 Intake and Output 05/28/24 05/28/24 05/28/24 06:59 14:59 22:59 Other: Weight 56.699 kg Results 05/28/24 17:04 05/28/24 17:04 Cardiac Enzymes 05/28/24 05/28/24 Range/Units 17:04 17:04 AST 29 (14-36) U/L Troponin I 0.219 H* (0.000-0.034) ng/mL Coagulation 05/28/24 Range/Units 17:04 PT 10.3 (10.0-12.5) sec APTT 24.1 (22.0-30.0) sec CBC 05/28/24 Range/Units 17:04 WBC 3.9 (3.8-10.6) k/uL RBC 4.36 (3.80-5.40) m/uL Hgb 12.6 (11.4-16.0) gm/dL Hct 38.6 (34.0-46.0) % Plt Count 172 (150-450) k/uL Comprehensive Metabolic Panel 05/28/24 Range/Units 17:04 Sodium 134 L (137-145) mmol/L Potassium 3.8 (3.5-5.1) mmol/L Chloride 99 (98-107) mmol/L Carbon Dioxide 28 (22-30) mmol/L BUN 16 (7-17) mg/dL Creatinine 0.47 L (0.52-1.04) mg/dL Glucose 148 H (74-99) mg/dL Calcium 9.3 (8.4-10.2) mg/dL AST 29 (14-36) U/L ALT 21 (4-34) U/L Alkaline Phosphatase 95 (38-126) U/L Total Protein 6.8 (6.3-8.2) g/dL Albumin 3.9 (3.5-5.0) g/dL Current Medications Generic Name Dose Route Start Last Admin Trade Name Freq PRN Reason Stop Dose Admin Losartan Potassium 25 mg 05/28/24 17:45 05/28/24 17:52 Losartan 25 Mg Tab PO 25 mg DAILY JESSICA Administration Intake and Output 05/28/24 05/28/24 05/28/24 06:59 14:59 22:59 Other: Weight 56.699 kg Patient Weight 05/29/24 06:59 Weight 56.699 kg 05/28/24 17:04 05/28/24 17:04
[2024-05-28 18:18] VITALS: BP 150/68; PULSE 68; RESP 16
== END 2024-05-28 18:18 | disposition home or self-care (01) ==
LOC: EC 16:26
DX: R00.2 Palpitations (principal); R79.89 Other specified abnormal findings of blood chemistry; I47.10 Supraventricular tachycardia, unspecified; Z88.0 Allergy status to penicillin; Z88.1 Allergy status to other antibiotic agents; Z88.2 Allergy status to sulfonamides
CPT/HCPCS: 36415; 71046; 80053; 83735; 83880; 84484; 85025; 85610; 85730; 93005; 99285

== ENCOUNTER → 2024-06-08 | Outpatient (CLI) | payer MEDICARE ==
--- NOTE | 2024-06-08 09:43 | MM ---
Reason for Exam: Screening (asymptomatic). Last screening mammogram was performed 12 month(s) ago. Patient History: Menarche at age 14. First Full-Term at age 32. Late child-bearing (after 31). Postmenopausal. Patient has history of breast feeding. Patient used Hormonal Contraceptives for 8 years. Risk Values: Taylor 5 year model risk: 2.2%. NCI Lifetime model risk: 9.1%. Prior Study Comparison: 05/30/2021 Bilateral Screening Mammogram, [facility]. 06/05/2022 Bilateral MG 3D screening mammo w/cad, [facility]. 06/08/2023 Bilateral MG 3D screening mammo w/cad, [facility]. Tissue Density: The breasts are heterogeneously dense, which may obscure small masses. Findings: Analyzed By CAD. There is no suspicious group of microcalcifications or new suspicious mass in either breast. Overall Assessment: Benign, BI-RAD 2 Management: Screening Mammogram of both breasts in 1 year. . Patient should continue monthly self-breast exams. A clinical breast exam by your physician is recommended on an annual basis. This exam should not preclude additional follow-up of suspicious palpable abnormalities. Note on Taylor scores and lifetime risk: 1. A Taylor score greater than 3% is considered moderate risk. If this is the case, consider specialist referral to assess eligibility for a risk reducing agent. 2. If overall lifetime risk for the development of breast cancer is 20% or higher, the patient may qualify for future screening with alternating mammogram and breast MRI. [facility], , 06/08/2024 9:41 AM. Electronically signed and approved by: Guy Osorio M.D. Radiologis
== END | disposition home or self-care (01) ==
LOC: RADMAMWWP 09:12
PROVIDERS: ATTEND Surgery
DX: Z12.31 Encounter for screening mammogram for malignant neoplasm of breast (principal); R92.333 Mammographic heterogeneous density, bilateral breasts; Z78.0 Asymptomatic menopausal state; Z92.0 Personal history of contraception
CPT/HCPCS: 77063; 77067

== ENCOUNTER → 2024-06-16 | Outpatient (CLI) | payer MEDICARE ==
[2024-06-16 11:06] VITALS: BP 135/80; PULSE 74; RESP 17; TEMP 97.4
--- NOTE | 2024-06-16 11:30 | P.PN ---
Subjective Progress Note Date: 06/16/24 Principal diagnosis: fibrocystic breast changes 06-16-24 Principal diagnosis: fibrocystic breast changes Jossy is a 64-year-old white female [place] [address]. In the left breast in the upper outer quadrant there is some calcifications of concern and a [place] [address]. This revealed 5 microcalcifications along the upper outer quadrant of the left breast located about 2 o'clock position 3 cm from the nipple. follow up mammogram in 6 months was recommended. She had a repeat mammogram on 02-15-20 which was benign BIRAD 2, repeat bilateral mammogram in 3 months The patient does not feel any lumps masses or nodules in her breast. She does not feel any pain in her breast. She has not had any trauma or infection in the breast. No biopsies prior in that breast. She underwent a bilateral mammogram on 06-08-24 which was BIRAD 2. This was personally interpreted. She is not complaining of any new lumps masses or nodules of concern in either breast. She drinks Chi in the morning she does not smoke and is not exposed to second hand smoke she does not eat much chocolate Family History: father: colorectal cancer Hormonal History: menarche: 14 , 1 [place], breast fed: yes, first born at 32 menopause: 52 BCP: 7 years hormones: none Surgical History: 1. right shoulder repair 2. tubaligation 3. brain surgery/seperate trigeminal nerve from artery (microvascular decompression) 4. Bilateral nerve stimulator was placed in the infraclavicular area for trigeminal neuralgia pain 5. cardiac ablation May 24, 2024 Medical History: 1. trigeminal neralgia 2. multiple sclerosis 3. high cholesterol 4. SVT treated with ablation Social History: smoke: none alcohol: rare drugs: none - Constitutional Constitutional: Denies chills, Denies fever - EENT Comment: wears glasses, eyes water Ears: bilateral: decreased hearing, tinnitus Ears, nose, mouth and throat: Denies headache, Denies sore throat - Breasts Breasts: bilateral: as per HPI - Cardiovascular Cardiovascular: Denies chest pain, Denies shortness of breath - Respiratory Respiratory: Denies cough, - Gastrointestinal Gastrointestinal: Denies abdominal pain, Denies diarrhea, Denies nausea, Denies vomiting - Genitourinary (Female) Genitourinary: Denies dysuria, Denies hematuria - Menstruation Menstruation: Reports postmenopausal - Musculoskeletal Comment: multiple sclerosis, hands and knees arthritis - Integumentary Integumentary: Denies pruritus, Denies rash - Neurological Comment: multiple sclerosis, weak hands - Psychiatric Psychiatric: Reports depression, Denies anxiety - Endocrine Endocrine: Denies fatigue, Denies weight change - Hematologic/Lymphatic Comment: none - Allergic/Immunologic Allergic/Immunologic: Reports as per HPI Objective - Vital Signs Vital signs: Vital Signs Temp 97.4 F L 06/16/24 11:01 Pulse 74 06/16/24 11:01 Resp 17 06/16/24 11:01 BP 135/80 06/16/24 11:01 Pulse Ox 100 06/16/24 11:01 FiO2 Intake & Output 06/15/24 06/16/24 06/16/24 18:59 06:59 18:59 Weight 56.245 kg - Constitutional General appearance: Present: cooperative - EENT Eyes: Present: EOMI ENT: Present: hearing grossly normal - Neck Neck: Present: normal ROM - Respiratory Respiratory: bilateral: CTA - Cardiovascular Rhythm: regular Heart sounds: normal: S1, S2 - Integumentary Integumentary: Present: normal turgor - Musculoskeletal Musculoskeletal: Present: gait normal - Psychiatric Psychiatric: Present: A&O x's 3, appropriate affect, intact judgment & insight - Additional findings Additional findings: Breast Exam: BRA: 34B inspection: grade 2 ptosis bilateral, bilateral infraclavicular nerve stimulators to control trigeminal neuralgia pain palpation: right breast: multipositional exam no dominate masses or nodules of concern right axilla: no adenopathy of concern left breast: multipositional exam no dominate masses or nodules of concern left axilla: no adenopathy of concern Assessment and Plan Assessment: Impression: 1. trigeminal neralgia 2. multiple sclerosis 3. fibrocystic breast changes Plan: 1. bilateral mammogram in 1 year May 2025, and follow up appointment at that time CC: Dr. Ford
== END ==
LOC: WWCWWP 10:52
PROVIDERS: ATTEND Surgery
DX: Z12.31 Encounter for screening mammogram for malignant neoplasm of breast (principal); N60.19 Diffuse cystic mastopathy of unspecified breast; G35 Multiple sclerosis; G50.0 Trigeminal neuralgia; Z88.0 Allergy status to penicillin; Z88.2 Allergy status to sulfonamides; Z88.8 Allergy status to other drugs, medicaments and biological substances